=== PATIENT | male | born 1945 | race Caucasian/White ===

== ENCOUNTER 2018-03-20 09:40 | Inpatient (IN) | payer OTHER ==
[2018-03-20] MEDS ORDERED: METOPROLOL TARTRATE 5 MG/5 ML INJ IV ONE (10:17)
[2018-03-20] MEDS ORDERED: NA CHLORIDE 0.9% 1,000 ML ONE (10:17)
[2018-03-20] MEDS ORDERED: ENOXAPARIN 100 MG/ML SYR SQ ONE (10:17)
[2018-03-20 10:25] LABS: Absolute Lymphocytes (CBC) 2.1 K/uL (0.7-4.9); Absolute Monocytes 0.5 K/uL (0.1-1.3); Absolute Neutrophil 4.9 K/uL (1.8-8.0); Basophils % 0.4 % (0-1.3); Eosinophils % 0.6 % (0-4.4); Hematocrit 43.6 % (39.6-49.0); Lymphocytes % 27.6 % (15.3-44.8); MPV 8.1 fL (7.6-11.3); Monocytes % 6.9 % (3.3-12.3); RBC Red Blood Cell Count 4.91 M/uL (4.33-5.43)
[2018-03-20 10:26] LABS: Protime INR 1.07
--- NOTE | 2018-03-20 10:26 | EDPHYS ---
Physician Documentation [facility] Name: Ovidio Doty JR. Age: 73 yrs Sex: Male : 1945 Arrival Date: 03/20/2018 Time: 09:42 Bed 3 Private MD: ED Physician Vu Keith HPI: 03/20 10:04 This 73 yrs old Male presents to ER via Unassigned with complaints of Chest snw Pain. 10:04 Onset: The symptoms/episode began/occurred suddenly, at 02:00. Associated signs and snw symptoms: Pertinent positives: chest pain, "indigestion". The patient has not experienced similar symptoms in the past. sees MD in [place] and has seen Dr. Matthews. Historical: - Allergies: 10:13 No Known Allergies; aj1 - Home Meds: 10:13 aspirin 81 mg Oral TbEC 1 tab once daily [Active]; atorvastatin 20 mg oral tab 1 tab aj1 once daily [Active]; lisinopril 30 mg Oral tab 1 tab once daily [Active]; tamsulosin 0.4 mg oral cp24 1 cap once daily [Active]; arthrozene daily [Active]; - PMHx: 10:13 Hypertension; Hyperlipidemia; aj1 - PSHx: 10:13 eye surgery; aj1 - Immunization history:: Flu vaccine is not up to date. - Social history:: Smoking status: Patient/guardian denies using tobacco. - Ebola Screening: : Patient denies travel to an Ebola-affected area in the 21 days before illness onset. ROS: 10:03 Constitutional: Negative for fever, chills, and weight loss, Eyes: Negative for injury, snw pain, redness, and discharge, ENT: Negative for injury, pain, and discharge, Neck: Negative for injury, pain, and swelling. 10:03 Respiratory: Negative for shortness of breath, cough, wheezing, and pleuritic chest pain, Back: Negative for injury and pain, : Negative for injury, bleeding, discharge, and swelling, MS/Extremity: Negative for injury and deformity, Skin: Negative for injury, rash, and discoloration, Neuro: Negative for headache, weakness, numbness, tingling, and seizure, Psych: Negative for depression, anxiety, suicide ideation, homicidal ideation, and hallucinations. 10:03 Abdomen/GI: Negative for abdominal pain, nausea, vomiting, diarrhea, and constipation. 10:03 Cardiovascular: Positive for chest pain. Exam: 10:02 Constitutional: This is a well developed, well nourished patient who is awake, alert, snw and in no acute distress. Head/Face: Normocephalic, atraumatic. Eyes: Pupils equal round and reactive to light, extra-ocular motions intact. Lids and lashes normal. Conjunctiva and sclera are non-icteric and not injected. Cornea within normal limits. Periorbital areas with no swelling, redness, or edema. ENT: Nares patent. No nasal discharge, no septal abnormalities noted. Tympanic membranes are normal and external auditory canals are clear. Oropharynx with no redness, swelling, or masses, exudates, or evidence of obstruction, uvula midline. Mucous membranes moist. Neck: Trachea midline, no thyromegaly or masses palpated, and no cervical lymphadenopathy. Supple, full range of motion without nuchal rigidity, or vertebral point tenderness. No Meningismus. Chest/axilla: Normal chest wall appearance and motion. Nontender with no deformity. No lesions are appreciated. Respiratory: Lungs have equal breath sounds bilaterally, clear to auscultation and percussion. No rales, rhonchi or wheezes noted. No increased work of breathing, no retractions or nasal flaring. Back: No spinal tenderness. No costovertebral tenderness. Full range of motion. Skin: Warm, very dry with normal turgor. Normal color with no rashes, no lesions, and no evidence of cellulitis. MS/ Extremity: Pulses equal, no cyanosis. Neurovascular intact. Full, normal range of motion. Neuro: Awake and alert, GCS 15, oriented to person, place, time, and situation. Cranial nerves II-XII grossly intact. Motor strength 5/5 in all extremities. Sensory grossly intact. Cerebellar exam normal. Normal gait. Psych: Awake, alert, with orientation to person, place and time. Behavior, mood, and affect are within normal limits. 10:02 Cardiovascular: Rate: tachycardic, Rhythm: irregularly irregular, Pulses: no pulse deficits are appreciated, Heart sounds: normal, Edema: is not appreciated, JVD: is not appreciated. 10:02 Abdomen/GI: Inspection: abdomen appears normal, umbilical hernia, Bowel sounds: normal, in all quadrants. Vital Signs: 10:05 BP 108 / 79; Pulse 142; Resp 20; Temp 97.2; Pulse Ox 100% on R/A; Weight 108.86 kg; bp Height 6 ft. 4 in. (193.04 cm); 11:00 BP 127 / 88; Pulse 115; Resp 15; Pulse Ox 98% ; bp 12:09 BP 121 / 86; Pulse 109; Resp 14; Pulse Ox 99% ; bp 10:05 Body Mass Index 29.21 (108.86 kg, 193.04 cm) bp MDM: 09:52 Patient medically screened. snw 10:06 Data reviewed: vital signs, nurses notes. Data interpreted: Pulse oximetry: on room air snw is 100 %. Interpretation: normal. Counseling: I had a detailed discussion with the patient and/or guardian regarding: the historical points, exam findings, and any diagnostic results supporting the discharge/admit diagnosis, lab results, radiology results, the need for further work-up and treatment in the hospital, Pt took ASA 324mg at 0300. 10:21 Physician consultation: Mihir Vora MD was called at 10:22, was contacted at 10:22, snw in the emergency department to see patient at 10:22. Physician consultation: Rehan Pereira DO was called at 10:22, was contacted at 10:22, regarding admission, to the telemetry unit. 03/20 10:02 Order name: Basic Metabolic Panel; Complete Time: 10:45 snw 03/20 10:02 Order name: CBC with Diff; Complete Time: 10:29 snw 03/20 10:02 Order name: LFT's; Complete Time: 10:45 snw 03/20 10:02 Order name: Magnesium; Complete Time: 10:45 snw 03/20 10:02 Order name: NT PRO-BNP; Complete Time: 10:45 snw 03/20 10:02 Order name: PT-INR; Complete Time: 10:33 snw 03/20 10:02 Order name: Troponin (emerg Dept Use Only); Complete Time: 10:45 snw 03/20 10:02 Order name: XRAY Chest (1 view); Complete Time: 10:29 snw 03/20 10:02 Order name: EKG; Complete Time: 10:03 snw 03/20 10:02 Order name: Cardiac monitoring; Complete Time: 10:11 snw 03/20 10:02 Order name: EKG - Nurse/Tech; Complete Time: 10: snw 03/20 10:24 Order name: Echo w/ Doppler snw 03/20 10:02 Order name: IV Saline Lock; Complete Time: 10:11 snw 03/20 10:02 Order name: Labs collected and sent; Complete Time: 10: snw 03/20 10:02 Order name: O2 Per Protocol; Complete Time: 10: snw 03/20 10:02 Order name: O2 Sat Monitoring; Complete Time: 10:12 snw Administered Medications: 10:16 Drug: Metoprolol 5 mg Route: IVP; Site: right forearm; bp 10:16 Drug: Lovenox 1 mg/kg Route: Sub-Q; Site: right lower abdomen; bp 12:16 Follow up: Response: No adverse reaction bp 10:20 Drug: Metoprolol 5 mg Route: IVP; Site: right forearm; bp 10:25 Drug: Metoprolol 5 mg Route: IVP; Site: right forearm; bp 12:17 Follow up: Response: No adverse reaction bp Disposition: 03/20/18 10:25 Hospitalization ordered by Rehan Pereira for Inpatient Admission. Preliminary diagnosis are Chest pain, unspecified, Atrial fibrillation and flutter - with RVR. - Bed requested for Telemetry/MedSurg (observation). - Status is Inpatient Admission. bp - Condition is Stable. - Problem is new. - Symptoms are unchanged. UTI on Admission? No Addendum: 03/22/2018 15:26 Co-signature as Attending Physician, Vu Keith MD. m a2 Signatures: Dispatcher [employer] EDMS Tamara Kerr RN RN aj1 Lizette Miller, STUDIO POTTER-C STUDIO POTTER-Csnw Kylie Almonte RN Slim Saeed RN RN bp Alzahri, Mohammad, MD MD ma2 Corrections: (The following items were deleted from the chart) 03/20 10:37 10:25 Hospitalization Ordered by Rehan Pereira DO for Inpatient Admission. Preliminary snw diagnosis is Chest pain, unspecified; Atrial fibrillation and flutter - with RVR. Bed requested for Telemetry/MedSurg (Inpatient). Status is Inpatient Admission. Condition is Stable. Problem is new. Symptoms are unchanged. UTI on Admission? No. snw 11:58 10:37 03/20/2018 10:25 Hospitalization Ordered by Rehan Pereira DO for Inpatient df Admission. Preliminary diagnosis is Chest pain, unspecified; Atrial fibrillation and flutter - with RVR. Bed requested for Telemetry/MedSurg (observation). Status is Inpatient Admission. Condition is Stable. Problem is new. Symptoms are unchanged. UTI on Admission? No. snw 12:25 11:58 03/20/2018 10:25 Hospitalization Ordered by Rehan Pereira DO for Inpatient bp Admission. Preliminary diagnosis is Chest pain, unspecified; Atrial fibrillation and flutter - with RVR. Bed requested for Telemetry/MedSurg (observation). Status is Inpatient Admission. Condition is Stable. Problem is new. Symptoms are unchanged. UTI on Admission? No. df
--- NOTE | 2018-03-20 10:26 | ER ---
Nurse's Notes [facility] Name: Ovidio oDty JR. Age: 73 yrs Sex: Male : 1945 Arrival Date: 03/20/2018 Time: 09:42 Bed 3 Private MD: Diagnosis: Chest pain, unspecified;Atrial fibrillation and flutter-with RVR Presentation: 03/20 10:03 Presenting complaint: Patient states: Chest pain that began early this morning, took ph ASA at home, attempted to take BP at home and unable to get a reading so came to ED, continues to c/o chest pain, rhythm noted to be Afib RVR when pt placed on bedside monitor. Transition of care: patient was not received from another setting of care. Onset of symptoms was March 20, 2018. Risk Assessment: Do you want to hurt yourself or someone else? Patient reports no desire to harm self or others. Care prior to arrival: None. 10:03 Method Of Arrival: Ambulatory ph 10:03 Acuity: TIO 2 ph 10:11 Initial Sepsis Screen: Does the patient meet any 2 criteria? HR > 90 bpm. No. Patient's aj1 initial sepsis screen is negative. Does the patient have a suspected source of infection? No. Patient's initial sepsis screen is negative. Triage Assessment: 10:13 General: Appears in no apparent distress. uncomfortable, Behavior is calm, cooperative, aj1 appropriate for age. Pain: Complains of pain in mid-sternal area Pain radiates to thoracic area Pain currently is 2 out of 10 on a pain scale. Quality of pain is described as pressure, Pain began 8 hours ago. Neuro: Level of Consciousness is awake, alert, obeys commands. Cardiovascular: Reports chest pain, Patient's skin is warm and dry. Rhythm is atrial fibrillation with rapid ventricular response. Respiratory: Airway is patent Respiratory effort is even, unlabored, Respiratory pattern is regular, symmetrical. Historical: - Allergies: 10:13 No Known Allergies; aj1 - Home Meds: 10:13 aspirin 81 mg Oral TbEC 1 tab once daily [Active]; atorvastatin 20 mg oral tab 1 tab aj1 once daily [Active]; lisinopril 30 mg Oral tab 1 tab once daily [Active]; tamsulosin 0.4 mg oral cp24 1 cap once daily [Active]; arthrozene daily [Active]; - PMHx: 10:13 Hypertension; Hyperlipidemia; aj1 - PSHx: 10:13 eye surgery; aj1 - Immunization history:: Flu vaccine is not up to date. - Social history:: Smoking status: Patient/guardian denies using tobacco. - Ebola Screening: : Patient denies travel to an Ebola-affected area in the 21 days before illness onset. Screenin:45 Abuse screen: Denies threats or abuse. Denies injuries from another. Nutritional bp screening: No deficits noted. Tuberculosis screening: No symptoms or risk factors identified. Fall Risk None identified. Assessment: :45 General: Appears in no apparent distress. comfortable, Behavior is calm, cooperative, bp appropriate for age. Pain: Complains of pain in thoracic area and chest and mid-sternal area. Pain: Pain does not radiate. Neuro: Level of Consciousness is awake, alert, obeys commands, Oriented to person, place, time, situation, Appropriate for age. Cardiovascular: Rhythm is atrial fibrillation with rapid ventricular response. Respiratory: Airway is patent Respiratory effort is even, unlabored, Respiratory pattern is regular, symmetrical. GI: No signs and/or symptoms were reported involving the gastrointestinal system. : No signs and/or symptoms were reported regarding the genitourinary system. EENT: No deficits noted. Derm: No deficits noted. Musculoskeletal: Circulation, motion, and sensation intact. Range of motion: intact in all extremities. 11:00 Reassessment: ECHO AT B/S. bp Vital Signs: 10:05 BP 108 / 79; Pulse 142; Resp 20; Temp 97.2; Pulse Ox 100% on R/A; Weight 108.86 kg; bp Height 6 ft. 4 in. (193.04 cm); 11:00 BP 127 / 88; Pulse 115; Resp 15; Pulse Ox 98% ; bp 12:09 BP 121 / 86; Pulse 109; Resp 14; Pulse Ox 99% ; bp 10:05 Body Mass Index 29.21 (108.86 kg, 193.04 cm) bp ED Course: 09:42 Patient arrived in ED. rg4 09:45 Patient has correct armband on for positive identification. Bed in low position. Call bp light in reach. Side rails up X2. Adult w/ patient. color television console monitor on. Pulse ox on. NIBP on. 09:52 Lizette Miller FNP-C is [facility]. snw 09:52 Vu Keith MD is Attending Physician. snw 10:00 Slim Franz, DARRYL is Primary Nurse. bp 10:04 EKG done, by customer service technician. reviewed by Lizette BROOKS. sm3 10:05 Triage completed. ph 10:05 Arm band placed on. ph 10:10 Inserted saline lock: 18 gauge in right forearm, using aseptic technique. Patient bp maintains SpO2 saturation greater than 95% on room air. 10:17 X-ray completed. Portable x-ray completed in exam room. Patient tolerated procedure tm4 well. 10:18 XRAY Chest (1 view) In Process Unspecified. EDMS 10:24 Vu Keith MD is Hospitalizing Provider. snw 10:24 Rehan Pereira DO is Hospitalizing Provider. snw 12:09 No provider procedures requiring assistance completed. Patient admitted, IV remains in bp place. Administered Medications: 10:16 Drug: Metoprolol 5 mg Route: IVP; Site: right forearm; bp 10:16 Drug: Lovenox 1 mg/kg Route: Sub-Q; Site: right lower abdomen; bp 12:16 Follow up: Response: No adverse reaction bp 10:20 Drug: Metoprolol 5 mg Route: IVP; Site: right forearm; bp 10:25 Drug: Metoprolol 5 mg Route: IVP; Site: right forearm; bp 12:17 Follow up: Response: No adverse reaction bp Output: 11:00 Urine: 125ml (Voided); Total: 125ml. lt1 12:08 Urine: 650ml (Voided); Total: 775ml. lt1 Outcome: 10:25 Decision to Hospitalize by Provider. snw 12:10 Condition: stable bp 12:10 Instructed on the need for admit. 12:16 Admitted to Tele accompanied by tech, family with patient, via wheelchair, room 204, bp with chart, Report called to THANG ANDREWS 12:25 Patient left the ED. bp Signatures: Dispatcher [employer] EDMS Tamara Kerr RN RN aj1 Lizette Miller FNP-C OUTSIDE SALES REPRESENTATIVE-Csnw Marla Burk tm4 Patricia Awad RN RN ph Garcia, Rubi rg4 Slim Franz RN RN bp Luisa Hernandez sm3 Kala Castro lt1 Corrections: (The following items were deleted from the chart) 10:16 10:05 BP 108 / 79; Pulse 142bpm; Resp 20bpm; Pulse Ox 100% RA; Temp 97.2F; ph bp
--- NOTE | 2018-03-20 10:28 | RAD REPORT ---
EXAM DESCRIPTION: RAD - Chest Single View - 03/20/2018 10:21 am CLINICAL HISTORY: CHEST PAIN Chest pain. COMPARISON: No comparisons FINDINGS: Portable technique limits examination quality. The lungs are grossly clear. The heart is normal in size. No displaced fractures. IMPRESSION: No acute intrathoracic process suspected.
[2018-03-20 10:43] LABS: ALT/SGPT 43 U/L (12-78); AST/SGOT 28 U/L (15-37); Albumin 3.7 g/dL (3.4-5.0); Alkaline Phosphatase 84 U/L (45-117); BUN Blood Urea Nitrogen 24 mg/dL (7-18); Bicarbonate 26 mmol/L (21-32); Bilirubin Direct 0.1 mg/dL (0-0.2); Bilirubin Total 0.5 mg/dL (0.2-1.0); Glucose Level 126 mg/dL (74-106); Magnesium 2.3 mg/dL (1.8-2.4); NT PRO-BNP 925 pg/mL (<125); Potassium 4.2 mmol/L (3.5-5.1); Protein, Total 7.2 g/dL (6.4-8.2); Sodium Level 140 mmol/L (136-145); Troponin (Emerg Dept Use Only) < 0.02 ng/mL (0.0-0.045)
--- NOTE | 2018-03-20 11:20 | P.HP ---
Certification for Inpatient Patient admitted to: Observation With expected LOS: <2 Midnights Patient will require the following post-hospital care: None Practitioner: I am a practitioner with admitting privileges, knowledge of patient current condition, hospital course, and medical plan of care. Services: Services provided to patient in accordance with Admission requirements found in Title 42 Section 412.3 of the Code of Federal Regulations Patient History Date of Service: 03/20/18 Primary Care Provider: Dr. Singh([place], [place]); Cardiology-Dr. Ramirez Reason for admission: Palpitations, chest pain History of Present Illness: 73-year-old male presented to the emergency room with palpitations and chest pain. Patient reported chest pain and palpitations today. Chest pain to the sternal region. Patient has history of hypertension and hyperlipidemia. Patient takes medication for this. It is been quite sometime since he last saw Cardiology. Palpitations did not improve. He denied any significant fever, chills, shortness of breath. No significant edema to the lower extremities. He came to the ER for further evaluation. In the ER patient evaluated. Patient found to have new onset atrial fibrillation with RVR. Rate was increased and required IV metoprolol. Rate now improved. On lab white count 7.6, hemoglobin 15.3. Sodium 140, potassium 4.2, BUN of 24, creatinine 1.2 with a GFR 58. Glucose 126, BNP 925. Troponin less than 0.02. Chest x-ray unremarkable. Patient admitted for observation. When I saw the patient ER, he appeared stable. No chest pain identified. Patient with history of hypertension, hyperlipidemia and BPH. Patient does not smoke or drink alcohol. Allergies No Known Allergies Allergy (Verified 01/25/17 12:31) Home medications list reviewed: Yes Home Medications: Aspirin [Aspirin EC 81 MG] 81 mg PO DAILY 01/25/17 Atorvastatin Calcium [Lipitor*] 20 mg PO BEDTIME 01/25/17 Lisinopril [Zestril] 30 mg PO DAILY 01/25/17 - Past Medical/Surgical History Diabetic: No -: Hypertension -: Hyperlipidemia -: BPH -: Cataracts Psychosocial/ Personal History: Patient is . He has no children. 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 - Family History Father -: Cancer (Throat cancer) Mother -: Stroke - Social History Smoking Status: Never smoker Alcohol use: No CD- Drugs: No Caffeine use: No Place of Residence: Home Review of Systems General: As per HPI Eyes: Unremarkable ENT: Unremarkable Respiratory: Unremarkable Cardiovascular: Chest Pain, Palpitations, As per HPI Gastrointestinal: Unremarkable Genitourinary: Unremarkable Musculoskeletal: Unremarkable Integumentary: Unremarkable Neurological: Unremarkable Lymphatics: Unremarkable Physical Examination - Physical Exam General: Alert, In no apparent distress, Oriented x3, Cooperative HEENT: Atraumatic, Normocephalic, PERRLA, Mucous membr. moist/pink Neck: Supple, No Thyromegaly Respiratory: Clear to auscultation bilaterally, Normal air movement Cardiovascular: Irregular heart rate/rhythm (Atrial fibrillation, rate improved) Gastrointestinal: Normal bowel sounds, Soft and benign, Non-distended, No tenderness, No masses, No rebound, No guarding Musculoskeletal: No erythema, No tenderness, No warmth Integumentary: No tenderness/swelling, No erythema, No warmth, No cyanosis Neurological: Normal speech, Normal strength at 5/5 x4 extr, Normal tone, Normal affect Lymphatics: No axilla or inguinal lymphadenopathy - Studies Laboratory Data (last 24 hrs) 03/20/18 10:09: PT 12.6 H, INR 1.07 03/20/18 10:09: WBC 7.6, Hgb 15.3, Hct 43.6, Plt Count 118 L 03/20/18 10:09: Sodium 140, Potassium 4.2, BUN 24 H, Creatinine 1.23, Glucose 126 H, Magnesium 2.3, Total Bilirubin 0.5, AST 28, ALT 43, Alkaline Phosphatase 84 Assessment and Plan - Plan Impression: Palpitations and chest pain secondary to New onset atrial fibrillation with RVR Hypertension Hyperlipidemia BPH Plan: Palpitations and chest pain secondary to New onset atrial fibrillation with RVR : Patient will be admitted and observed. Cardiology consulted. Case discussed with cardiology. Will continue with beta-angel therapy for rate control. Will monitor closely. Continue to monitor cardiac enzymes and electrolytes. Will check echocardiogram. Will evaluate for thyroid disease. Will continue to monitor closely. Will reassess. Lovenox at 1 milligram/ kilogram subcu twice daily initiated. Will reassess tomorrow. Patient will likely require medication including chronic anti coagulation therapy at discharge. Hypertension: Will hold lisinopril. Patient started on metoprolol. Will monitor and adjust appropriately. Hyperlipidemia: Check fasting lipid panel. Will continue with Lipitor 20 mg daily. BPH: Will continue with Flomax 0.4 mg daily. Discharge Plan: Home Plan to discharge in: 24 Hours - Advance Directives Does patient have a Living Will: No Does patient have a Durable POA for Healthcare: No - Code Status/Comfort Care Code Status Assessed: Yes (Patient full code.) Time Spent Managing Pts Care (In Minutes): 55
[2018-03-20] MEDS ORDERED: ACETAMINOPHEN 500 MG TAB PO PRN (12:23)
[2018-03-20] MEDS ORDERED: ONDANSETRON 4 MG/2 ML VIAL IV PRN (12:23)
[2018-03-20 13:14] LABS: CKMB Creatine Kinase MB 7.1 ng/mL (0.3-3.6); Troponin I 0.02 ng/mL (0.0-0.045)
[2018-03-20 13:21] LABS: Thyroid Stimulating Hormone 2.34 uIU/mL (0.360-3.740)
--- NOTE | 2018-03-20 15:35 | EKG ---
Test Date: 2018-03-20 Test Time: 09:51:03 Antichecking Iron Worker: DUSTY MEASUREMENT RESULTS: Intervals: Rate: 147 IN: QRSD: 80 QT: 288 QTc: 450 [place]: P: IN: QRS: 54 T: 8 INTERPRETIVE STATEMENTS: Atrial fibrillation with rapid ventricular response Abnormal ECG No previous ECG available for comparison Electronically Signed On 03-20-18 15:34:[address]PERVIS[address] by Mihir Vora
--- NOTE | 2018-03-20 15:41 | ECHO ---
HEIGHT: 6 ft 4 in WEIGHT: 240 lb 0 oz DATE OF STUDY: 03/20/[address]: Lizette Miller DRIVER OPERATOR-BC 2-DIMENSIONAL: YES M.MODE: YES DOPPLER: YES COLOR FLOW: YES TDS: NO PORTABLE: NO DEFINITY: NO BUBBLE STUDY: NO DIAGNOSIS: ATRIAL FIBRILLATION WITH RAPID VENTRICULAR RESPONSE. CARDIAC HISTORY: CATHERIZATION: NO SURGERY: NO PROSTHETIC VALVE: NO PACEMAKER: NO MEASUREMENTS (cm) DIASTOLIC (NORMALS) SYSTOLIC (NORMALS) IVSd 1.1 (0.6-1.2) LA Diam 4.0 (1.9-4.0) LVEF 50% LVIDd 3.8 (3.5-5.7) LVIDs 2.9 (2.0-3.5) %FS 25% LVPWd 1.1 (0.6-1.2) Ao Diam 2.7 (2.0-3.7) 2 DIMENSIONAL ASSESSMENT: RIGHT ATRIUM: NORMAL LEFT ATRIUM: NORMAL RIGHT VENTRICLE: NORMAL LEFT VENTRICLE: NORMAL TRICUSPID VALVE: NORMAL MITRAL VALVE: NORMAL PULMONIC VALVE: NORMAL AORTIC VALVE: NORMAL PERICARDIAL EFFUSION: NONE AORTIC ROOT: NORMAL LEFT VENTRICULAR WALL MOTION: NORMAL DOPPLER/COLOR FLOW: NORMAL COMMENTS: NORMAL LEFT VENTRICULAR SIZE AND FUNCTION. NO WALL MOTION ABNORMALITIES. NO EFFUSION. NO ATRIAL FIBRILLATION. TECHNOLOGIST: TAMMY TRAORE RDCS
[2018-03-20] MEDS: METOPROLOL TAR 25 MG TAB PO SCH (17:18)
[2018-03-20 17:49] LABS: Urine Appearance CLEAR; Urine Bilirubin NEGATIVE (NEG); Urine Blood NEGATIVE (NEG); Urine Color YELLOW; Urine Glucose NEGATIVE (NEG); Urine Protein NEGATIVE (NEG); Urine Urobilinogen 0.2 mg/dL (0.2-1.0)
[2018-03-20 18:05] LABS: Urine Microscopic Reflex NO UMIC
--- NOTE | 2018-03-20 19:55 | CON ---
Date of Consultation: 03/20/2018 Reason For Consultation: New-onset atrial fibrillation with chest pain. History Of Present Illness: Mr. Doty is a 73-year-old white man, who has a history of dyslipidemi a, hypertension, benign prostatic hypertrophy, came in with palpitation and chest pain with that. Hi s chest pain was resolved after his atrial fibrillation rate was controlled. This is new to him. He denied any PND, orthopnea, pedal edema. Denied any syncope. Denied any nausea, vomiting, or diapho resis. The patient thinks that his atrial fibrillation was started approximately 12 hours prior to h is arrival. Allergies: NONE. Review of Systems: Negative. Social History: Negative for tobacco, alcohol, or drugs. Family History: Noncontributory. Medications At Home: Include aspirin, Lipitor, Zestril, and Flomax. Physical Examination: General: He was slightly anxious. No acute distress. Alert and oriented x3. Vital Signs: Blood pressure was adequate at 120/70. His heart rate was 110. HEENT: Negative. Neck: Supple with no bruit. Chest: Clear. Cardiac: Revealed atrial fibrillation. No murmurs, gallops, or rubs. Abdomen: Benign. Extremities: Revealed no clubbing, cyanosis, or edema. Diagnostic Data: EKG showed atrial fibrillation. BNP was 925. Impression And Plan: New-onset atrial fibrillation with chest pain. Chest pain resolved after the a trial fibrillation rate was better. He certainly needs to have a cardiac workup including an echocar diogram, we can probably do an outpatient Lexiscan once his heart rate is controlled. He has already received metoprolol and Lovenox. I think we should leave him on metoprolol and Lovenox for now and see how he does with that as far as a rate or conversion. If not, we should put him on Betapace 80 m g b.i.d. having get 3 dosages and then consider cardioversion in the near future. Regarding anticoag ulation, I think he has enough risk factors. He should be anticoagulated with Coumadin or one of the new novel anticoagulants. We can certainly do that when he goes home and we will decide what to do with atrial fibrillation depending on beta-blockers use. His blood pressure is well controlled. His dyslipidemia is well controlled. FREDRICK/MIGUE Voice ID: [id number] Report ID: [id number]
[2018-03-20] MEDS: Enoxaparin 120 MG/0.8 ML SYR SQ SCH (20:50)
[2018-03-20] MEDS: ATORVASTATIN 20 MG TAB PO SCH (20:51)
[2018-03-20] MEDS: TAMSULOSIN 0.4 MG SR CAP PO SCH (20:51)
[2018-03-20 22:34] LABS: CKMB Creatine Kinase MB 4.9 ng/mL (0.3-3.6); Creatine Phosphokinase 169 U/L (39-308); Troponin I < 0.02 ng/mL (0.0-0.045)
[2018-03-20] MEDS: TRAZODONE 50 MG TABLET PO PRN (23:56)
[2018-03-21 06:15] LABS: Absolute Lymphocytes (CBC) 2.2 K/uL (0.7-4.9); Absolute Monocytes 0.8 K/uL (0.1-1.3); Absolute Neutrophil 4.7 K/uL (1.8-8.0); Basophils % 0.4 % (0-1.3); Eosinophils % 1.7 % (0-4.4); Hematocrit 41.2 % (39.6-49.0); Lymphocytes % 28.2 % (15.3-44.8); MPV 7.9 fL (7.6-11.3); Monocytes % 9.8 % (3.3-12.3); RBC Red Blood Cell Count 4.61 M/uL (4.33-5.43)
[2018-03-21] MEDS: METOPROLOL TAR 25 MG TAB PO SCH (06:26)
[2018-03-21] MEDS: PANTOPRAZOLE 40MG TABLET PO SCH (06:26)
[2018-03-21 06:38] LABS: Magnesium 2.4 mg/dL (1.8-2.4); Potassium 4.3 mmol/L (3.5-5.1)
[2018-03-21] MEDS: Enoxaparin 120 MG/0.8 ML SYR SQ SCH (08:42)
[2018-03-21] MEDS: ASPIRIN EC 81 MG TAB PO SCH (08:43)
[2018-03-21] MEDS ORDERED: SOTALOL HCL 80 MG TAB PO ONE (10:52)
--- NOTE | 2018-03-21 13:48 | P.PN ---
Subjective Date of Service: 03/21/18 Primary Care Provider: Dr. Singh([place], [place]); Cardiology-Dr. Ramirez Chief Complaint: Palpitations, chest pain Subjective: Other (Patient doing well this time. Patient still in atrial fibrillation but rate better controlled.) Physical Examination - Vital Signs Temperature: 97.5 F Blood Pressure: 113/79 Pulse: 92 Respirations: 18 Pulse Ox (%): 94 - Physical Exam General: Alert, In no apparent distress, Oriented x3, Cooperative HEENT: Atraumatic Neck: Supple Respiratory: Clear to auscultation bilaterally, Normal air movement Cardiovascular: Irregular heart rate/rhythm (Atrial fibrillation rate better controlled) Gastrointestinal: Normal bowel sounds, No tenderness, No masses, No rebound, No guarding Musculoskeletal: No erythema, No tenderness, No warmth Integumentary: No tenderness/swelling, No erythema, No warmth, No cyanosis Neurological: Normal speech, Normal strength at 5/5 x4 extr, Normal tone - Studies Laboratory Data (last 24 hrs) 03/21/18 05:38: Sodium 144, Potassium 4.3, BUN 20 H, Creatinine 1.36 H, Glucose 99, Magnesium 2.4, Triglycerides 93, Cholesterol 123, HDL Cholesterol 37 L, Cholesterol/HDL Ratio 3.32 03/21/18 05:38: WBC 7.8, Hgb 14.5, Hct 41.2, Plt Count 109 L 03/20/18 21:39: Troponin I < 0.02 Medications List Reviewed: Yes Assessment & Plan Discharge Plan: Home Plan to discharge in: 24 Hours Physician Review Additional Text: Impression: Palpitations and chest pain secondary to New onset atrial fibrillation with RVR Hypertension Hyperlipidemia Mild renal insufficiency BPH Plan: Palpitations and chest pain secondary to New onset atrial fibrillation with RVR : Patient still in atrial fibrillation but rate better controlled. Case discussed with cardiology. Since the patient has not converted on beta-angel therapy will exchange floor manager to Betapace 40 mg 1 pill twice daily. Will monitor patient for at least 3 doses. If the patient remains in atrial fibrillation and rate controlled the patient can possibly be discharged tomorrow on Betapace with chronic anti coagulation therapy. Patient will require cardiac stress test as an outpatient. Hypertension: Lisinopril discontinued. Patient now on sotalol. Hyperlipidemia: Fasting lipid panel well controlled. Will continue with Lipitor 20 mg daily. Mild renal insufficiency: Will start low-dose IV fluids. Will monitor closely. BPH: Will continue with Flomax 0.4 mg daily. Time Spent Managing Pts Care (In Minutes): 55
[2018-03-21] MEDS ORDERED: NACHLORIDE 0.45% 1,000 ML IV SCH (14:00)
[2018-03-21] MEDS: SOTALOL HCL 80 MG TAB PO SCH (16:29)
[2018-03-21] MEDS ORDERED: SOTALOL HCL 80 MG TAB PO SCH ×2 (18:00)
[2018-03-21] MEDS: TRAZODONE 50 MG TABLET PO PRN (22:10)
[2018-03-21] MEDS: ATORVASTATIN 20 MG TAB PO SCH (22:10)
[2018-03-21] MEDS: TAMSULOSIN 0.4 MG SR CAP PO SCH (22:10)
[2018-03-21] MEDS: APIXABAN 5 MG TABLET PO SCH (22:10)
[2018-03-22] MEDS: PANTOPRAZOLE 40MG TABLET PO SCH (06:18)
[2018-03-22] MEDS: SOTALOL HCL 80 MG TAB PO SCH (06:18)
[2018-03-22 06:22] LABS: Absolute Lymphocytes (CBC) 2.2 K/uL (0.7-4.9); Absolute Monocytes 0.6 K/uL (0.1-1.3); Absolute Neutrophil 3.4 K/uL (1.8-8.0); Basophils % 0.4 % (0-1.3); Eosinophils % 2.2 % (0-4.4); Hematocrit 41.8 % (39.6-49.0); Lymphocytes % 34.7 % (15.3-44.8); Monocytes % 9.1 % (3.3-12.3); RBC Red Blood Cell Count 4.68 M/uL (4.33-5.43)
[2018-03-22 06:36] LABS: Magnesium 2.2 mg/dL (1.8-2.4); Potassium 4.2 mmol/L (3.5-5.1)
[2018-03-22] MEDS: ASPIRIN EC 81 MG TAB PO SCH (09:29)
[2018-03-22] MEDS: APIXABAN 5 MG TABLET PO SCH (09:29)
--- NOTE | 2018-03-22 10:03 | P.DS ---
Admission Date: 03/21/18 Discharge Date: 03/22/18 Primary Care Provider: Dr. Singh([place], [place]); Cardiology-Dr. Ramirez Disposition: ROUTINE DISCHARGE Discharge Condition: GOOD Reason for Admission: Palpitations, chest pain Consultations: Cardiology-Dr. Pak/Dr. Vora Procedures: ECHO: EF 50-% LEFT VENTRICULAR WALL MOTION: NORMAL DOPPLER/COLOR FLOW: NORMAL COMMENTS: NORMAL LEFT VENTRICULAR SIZE AND FUNCTION. NO WALL MOTION ABNORMALITIES. NO EFFUSION. NO ATRIAL FIBRILLATION. CXR: COMPARISON: No comparisons FINDINGS: Portable technique limits examination quality. The lungs are grossly clear. The heart is normal in size. No displaced fractures. IMPRESSION: No acute intrathoracic process suspected. Medical problem list: Palpitations and chest pain secondary to New onset atrial fibrillation with RVR Hypertension Hyperlipidemia Mild renal insufficiency likely underlying chronic renal disease stage 3 BPH Mild thrombocytopenia GERD Brief History of Present Illness: 73-year-old male presented to the emergency room with palpitations and chest pain. Patient reported chest pain and palpitations today. Chest pain to the sternal region. Patient has history of hypertension and hyperlipidemia. Patient takes medication for this. It is been quite sometime since he last saw Cardiology. Palpitations did not improve. He denied any significant fever, chills, shortness of breath. No significant edema to the lower extremities. He came to the ER for further evaluation. In the ER patient evaluated. Patient found to have new onset atrial fibrillation with RVR. Rate was increased and required IV metoprolol. Rate now improved. On lab white count 7.6, hemoglobin 15.3. Sodium 140, potassium 4.2, BUN of 24, creatinine 1.2 with a GFR 58. Glucose 126, BNP 925. Troponin less than 0.02. Chest x-ray unremarkable. Patient admitted for observation. When I saw the patient ER, he appeared stable. No chest pain identified. Patient with history of hypertension, hyperlipidemia and BPH. Patient does not smoke or drink alcohol. Hospital Course: Patient presented with palpitations and chest pain secondary to new onset atrial fibrillation with RVR. Patient was admitted for further evaluation and treatment. Patient seen by Cardiology. Patient was started on beta-angel therapy but this was eventually changed to Betapace 80 mg 1 pill twice daily. Patient still in atrial fibrillation but rate better controlled. Chest pain resolved. Patient also now on chronic anti coagulation therapy-Eliquis. Patient has tolerated medication well. At discharge patient will continue with Betapace 80 mg 1 pill twice daily and Eliquis 5 mg 1 pill twice daily. Recommendation is for the patient to follow up with cardiology within 1 week to follow up this hospitalization. Patient will require cardiac stress tests as an outpatient to further assess his condition. If atrial fibrillation persists patient may require cardioversion as an outpatient. Education on atrial fibrillation, chronic anti coagulation therapy-Eliquis and Betapace will be provided. Please note aspirin has been discontinued. Patient with history of hypertension. Medication adjusted. Patient no longer taking lisinopril since the patient has done well with Betapace. Recommendation is to maintain blood pressures less 150/80. Further adjustment can be done by his PCP. Patient with hyperlipidemia. Patient will continue with Lipitor 20 mg daily. Patient with mild renal insufficiency. Patient likely with underlying chronic kidney disease stage 3. Patient has seen Nephrology in the past. Lisinopril discontinued. Future medications will need to be renally dosed. Recommendation on no further use of nonsteroidal anti-inflammatories. Recommendation to recheck lab-BMP in 1 week to monitor his progress. Recommendation is for the patient follow up with nephrology in outpatient to further monitor and address. Patient had mild thrombocytopenia. Patient will be on chronic anti coagulation therapy for his atrial fibrillation. Recommendation to recheck lab-CBC in 1 week to monitor his progress. Patient has BPH. Patient seen by urology as an outpatient. Patient will continue with Flomax 0.4 mg daily. Patient will need to inform urology that the patient is on new medication for atrial fibrillation. Patient likely with underlying GERD. Patient will continue with Protonix 40 mg 1 pill once daily. Vital Signs/Physical Exam: Temp Pulse Resp BP Pulse Ox 97.7 F 88 18 120/80 96 03/22/18 04:00 03/22/18 06:20 03/22/18 04:00 03/22/18 06:20 03/22/18 04:00 General: Alert, In no apparent distress, Oriented x3, Cooperative HEENT: Atraumatic, Mucous membr. moist/pink Neck: Supple, No Thyromegaly Respiratory: Clear to auscultation bilaterally, Normal air movement Cardiovascular: Irregular heart rate/rhythm (Atrial fibrillation, rate controlled) Gastrointestinal: Normal bowel sounds, Soft and benign, Non-distended, No tenderness, No masses, No rebound, No guarding Musculoskeletal: No erythema, No tenderness, No warmth Integumentary: No tenderness/swelling, No erythema, No warmth, No cyanosis Neurological: Normal speech, Normal strength at 5/5 x4 extr, Normal tone, Normal affect Laboratory Data at Discharge: WBC 6.4 K/uL (4.3-10.9) D 03/22/18 05:38 Hgb 14.6 g/dL (13.6-17.9) 03/22/18 05:38 Hct 41.8 % (39.6-49.0) 03/22/18 05:38 Plt Count 102 K/uL (152-406) L 03/22/18 05:38 PT 12.6 SECONDS (9.5-12.5) H 03/20/18 10:09 INR 1.07 03/20/18 10:09 Sodium 144 mmol/L (136-145) 03/22/18 05:38 Potassium 4.2 mmol/L (3.5-5.1) 03/22/18 05:38 BUN 23 mg/dL (7-18) H 03/22/18 05:38 Creatinine 1.44 mg/dL (0.55-1.3) H 03/22/18 05:38 Glucose 91 mg/dL (74-106) 03/22/18 05:38 Magnesium 2.2 mg/dL (1.8-2.4) 03/22/18 05:38 Total Bilirubin 0.5 mg/dL (0.2-1.0) 03/20/18 10:09 AST 28 U/L (15-37) 03/20/18 10:09 ALT 43 U/L (12-78) 03/20/18 10:09 Alkaline Phosphatase 84 U/L (45-117) 03/20/18 10:09 Troponin I < 0.02 ng/mL (0.0-0.045) 03/20/18 21:39 Triglycerides 93 mg/dL (<150) 03/21/18 05:38 Cholesterol 123 mg/dL (<200) 03/21/18 05:38 HDL Cholesterol 37 mg/dL (40-60) L 03/21/18 05:38 Cholesterol/HDL Ratio 3.32 03/21/18 05:38 Home Medications: Atorvastatin Calcium [Lipitor*] 20 mg PO BEDTIME 01/25/17 Tamsulosin [Flomax*] 1 cap PO DAILY 03/20/18 Apixaban [Eliquis] 5 mg PO BID #60 tablet 03/22/18 Pantoprazole [Protonix Tab*] 40 mg PO DAILYAC #30 tab 03/22/18 Sotalol HCl [Betapace*] 80 mg PO BID 6AM 6PM #60 tab 03/22/18 New Medications: Apixaban [Eliquis] 5 mg PO BID #60 tablet Pantoprazole [Protonix Tab*] 40 mg PO DAILYAC #30 tab Sotalol HCl [Betapace*] 80 mg PO BID 6AM 6PM #60 tab Patient Discharge Instructions: 1. Patient will need to follow up his PCP in 1 week to follow up this hospitalization. 2. Patient presented with palpitations and chest pain secondary to new onset atrial fibrillation with RVR. Patient was admitted for further evaluation and treatment. Patient seen by Cardiology. Patient was started on beta-angel therapy but this was eventually changed to Betapace 80 mg 1 pill twice daily. Patient still in atrial fibrillation but rate better controlled. Chest pain resolved. Patient also now on chronic anti coagulation therapy-Eliquis. Patient has tolerated medication well. At discharge patient will continue with Betapace 80 mg 1 pill twice daily and Eliquis 5 mg 1 pill twice daily. Recommendation is for the patient to follow up with cardiology within 1 week to follow up this hospitalization. Patient will require cardiac stress tests as an outpatient to further assess his condition. If atrial fibrillation persists patient may require cardioversion as an outpatient. Education on atrial fibrillation, chronic anti coagulation therapy-Eliquis and Betapace will be provided. Please note aspirin has been discontinued. 3. Patient with history of hypertension. Medication adjusted. Patient no longer taking lisinopril since the patient has done well with Betapace. Recommendation is to maintain blood pressures less 150 /80. Further adjustment can be done by his PCP. 4. Patient with hyperlipidemia. Patient will continue with Lipitor 20 mg daily. 5. Patient with mild renal insufficiency. Patient likely with underlying chronic kidney disease stage 3. Patient has seen Nephrology in the past. Lisinopril discontinued. Future medications will need to be renally dosed. Recommendation on no further use of nonsteroidal anti-inflammatories. Recommendation to recheck lab-BMP in 1 week to monitor his progress. Recommendation is for the patient follow up with nephrology in outpatient to further monitor and address. 6. Patient had mild thrombocytopenia. Patient will be on chronic anti coagulation therapy for his atrial fibrillation. Recommendation to recheck lab-CBC in 1 week to monitor his progress. 7. Patient has BPH. Patient seen by urology as an outpatient. Patient will continue with Flomax 0.4 mg daily. Patient will need to inform urology that the patient is on new medication for atrial fibrillation. 8. Patient likely with underlying GERD. Patient will continue with Protonix 40 mg 1 pill once daily. Diet: AHA Activity: Ad sharmin Time spent managing pt's care (in minutes): 55
== END 2018-03-22 11:25 | disposition home or self-care (01) | DRG 310 ==
LOC: ER 09:40 → ERHOLD 10:48 → 2ND 12:17 → OBSVTOIN 03-21 10:32
PROVIDERS: ADMIT Family Medicine; ATTEND Family Medicine
DX: I48.91 Unspecified atrial fibrillation (principal); D69.6 Thrombocytopenia, unspecified; E78.5 Hyperlipidemia, unspecified; N40.0 Benign prostatic hyperplasia without lower urinary tract symptoms; N28.9 Disorder of kidney and ureter, unspecified; I12.9 Hypertensive chronic kidney disease with stage 1 through stage 4 chronic kidney disease, or unspecified chronic kidney disease; N18.3 Chronic kidney disease, stage 3 (moderate); K21.9 Gastro-esophageal reflux disease without esophagitis
CPT/HCPCS: 36415; 71045; 80048; 80061; 80076; 81003; 82550; 82553; 83735; 83880; 84439; 84443; 84484; 85025; 85610; 93005; 93306; 96372; 96374; 99285; G0378; J1650; J7030

== ENCOUNTER 2018-08-22 20:39 | Emergency (ER) | payer OTHER ==
[2018-08-22 22:01] LABS: Albumin 3.8 g/dL (3.4-5.0); Bilirubin Total 0.9 mg/dL (0.2-1.0); Potassium 4.1 mmol/L (3.5-5.1); Protein, Total 7.2 g/dL (6.4-8.2)
[2018-08-22] MEDS ORDERED: NA CHLORIDE 0.9% 1,000 ML ONE (22:09)
--- NOTE | 2018-08-22 23:22 | ER ---
Nurse's Notes [facility] Name: Ovidio Doty JR. Age: 73 yrs Sex: Male : 1945 Arrival Date: 08/22/2018 Time: 20:42 Bed 2 Private MD: Diagnosis: Asymptomatic hypertension Presentation: 08/22 21:00 Presenting complaint: Patient states: "I am having high blood pressure. at home, my jd3 machine said I was 180/110. I'm not really hurting, but it is causing some chest pressure.". Transition of care: patient was not received from another setting of care. Onset of symptoms was August 22, 2018. Risk Assessment: Do you want to hurt yourself or someone else? Patient reports no desire to harm self or others. Initial Sepsis Screen: Does the patient meet any 2 criteria? No. Patient's initial sepsis screen is negative. Does the patient have a suspected source of infection? No. Patient's initial sepsis screen is negative. Care prior to arrival: None. 21:00 Method Of Arrival: Ambulatory jd3 21:00 Acuity: TIO 3 jd3 Triage Assessment: 21:06 Pain: Denies pain. cc3 21:19 General: Appears in no apparent distress. Behavior is calm, cooperative. ak1 Historical: - Allergies: 21:03 No Known Allergies; jd3 - Home Meds: 21:03 sotalol 80 mg Oral tab 1 tab 2 times per day [Active]; atorvastatin 20 mg Oral tab 1 jd3 tab once daily [Active]; arthrozene daily [Active]; aspirin 81 mg Oral TbEC 1 tab once daily [Active]; lisinopril 30 mg Oral tab 1 tab once daily [Active]; tamsulosin 0.4 mg Oral cp24 1 cap once daily [Active]; - PMHx: 21:03 Hyperlipidemia; Hypertension; High Cholesterol; Irregular heart rate; jd3 - PSHx: 21:03 eye surgery; jd3 - Immunization history:: Adult Immunizations up to date. - Social history:: Smoking status: Patient/guardian denies using tobacco. - Ebola Screening: : Patient negative for fever greater than or equal to 101.5 degrees Fahrenheit, and additional compatible Ebola Virus Disease symptoms. Screenin:17 Abuse screen: Denies threats or abuse. Denies injuries from another. Nutritional ak1 screening: No deficits noted. Tuberculosis screening: No symptoms or risk factors identified. Fall Risk None identified. Assessment: 21:06 General: Appears in no apparent distress. comfortable, Behavior is calm, cooperative, cc3 appropriate for age. Pain: Denies pain. Neuro: Level of Consciousness is awake, alert, obeys commands, Oriented to person, place, time, situation, Appropriate for age. Cardiovascular: Reports chest pressure but not painful Patient's skin is warm and dry. Respiratory: Airway is patent Respiratory effort is even, unlabored, Respiratory pattern is regular, symmetrical. GI: Abdomen is round obese. : No signs and/or symptoms were reported regarding the genitourinary system. EENT: No signs and/or symptoms were reported regarding the EENT system. Derm: No signs and/or symptoms reported regarding the dermatologic system. Musculoskeletal: Circulation, motion, and sensation intact. Range of motion: intact in all extremities. 22:12 Reassessment: Patient appears in no apparent distress at this time. Patient and/or cc3 family updated on plan of care and expected duration. Pain level reassessed. Patient is alert, oriented x 3, equal unlabored respirations, skin warm/dry/pink. 23:50 Reassessment: Patient appears in no apparent distress at this time. Patient and/or cc3 family updated on plan of care and expected duration. Pain level reassessed. Patient is alert, oriented x 3, equal unlabored respirations, skin warm/dry/pink. Dr. Aquino discharged the patient home with prescription given. IV cannula removed and patient left ER vitally stable and ambulatory with steady gait. Patient denies pain at this time. Patient states feeling better. Vital Signs: 21:04 BP 182 / 103; Pulse 52; Resp 17 S; Temp 97.5(O); Pulse Ox 98% on R/A; Weight 106.59 kg jd3 (R); Height 6 ft. 3 in. (190.50 cm) (R); Pain /10; 21:16 BP 167 / 98; Pulse 49; Resp 16; Temp 97.5(O); Pulse Ox 98% on R/A; ak1 22:11 BP 157 / 90; Pulse 47; Resp 15; Pulse Ox 98% on R/A; ak1 23:00 BP 181 / 96; Pulse 46; Resp 18 S; Temp 97.5(O); Pulse Ox 100% on R/A; cc3 23:30 BP 171 / 98; Pulse 52; Resp 17 S; Temp 97.5(O); Pulse Ox 100% on R/A; cc3 21:04 Body Mass Index 29.37 (106.59 kg, 190.50 cm) jd3 ED Course: 20:42 Patient arrived in ED. es 21:01 Triage completed. jd3 21:05 Arm band placed on. jd3 21:05 Inserted saline lock: 20 gauge in left antecubital area, using aseptic technique. Blood cc3 collected. 21:06 Radha Vargas is Primary Nurse. cc3 21:10 Andrew Aquino MD is Attending Physician. ps1 21:16 Patient has correct armband on for positive identification. Placed in gown. Bed in low ak1 position. Call light in reach. Side rails up X 1. Adult w/ patient. security monitor on. Pulse ox on. NIBP on. 23:50 No provider procedures requiring assistance completed. IV discontinued, intact, cc3 bleeding controlled, No redness/swelling at site. Pressure dressing applied. Administered Medications: 21:57 Drug: NS 0.9% 1000 ml Route: IV; Rate: 1 bolus; Site: left antecubital; cc3 23:10 Follow up: Response: No adverse reaction; IV Status: Completed infusion; IV Intake: cc3 1000ml Intake: 23:10 IV: 1000ml; Total: 1000ml. cc3 Outcome: 23:22 Discharge ordered by MD. ps1 23:50 Discharged to home ambulatory. cc3 23:50 Condition: stable 23:50 Discharge instructions given to patient, Instructed on discharge instructions, follow up and referral plans. medication usage, Demonstrated understanding of instructions, follow-up care, medications, Prescriptions given X 1. 23:57 Patient left the ED. cc3 Signatures: Annelise Fitzgerald Amber RN RN ak1 Sundeep Garcia RN RN jAndrew Villanueva MD MD ps1 Radha Vargas cc3 Corrections: (The following items were deleted from the chart) 23:38 23:30 BP 171 / 98; Pulse 48bpm; Resp 17bpm; Spontaneous; Pulse Ox 100% RA; cc3 cc3 06/01 00:59 05/31 23:00 BP 181 / 96; Pulse 46bpm; Resp 18bpm; Spontaneous; Pulse Ox 100% RA; cc3 cc3 08/23 00:59 08/22 23:30 BP 171 / 98; Pulse 52bpm; Resp 17bpm; Spontaneous; Pulse Ox 100% RA; cc3 cc3
--- NOTE | 2018-08-22 23:22 | EDPHYS ---
Physician Documentation [facility] Name: Ovidio Doty JR. Age: 73 yrs Sex: Male : 1945 Arrival Date: 08/22/2018 Time: 20:42 Bed 2 Private MD: ED Physician Andrew Aqunio HPI: 08/22 21:42 This 73 yrs old Male presents to ER via Ambulatory with complaints of High ps1 Blood Pressure. 21:42 patient with essentially asymptomatic hypertension. Hx of afib on sotalol. Has not ps1 checked his blood pressure in months. States that he was working in the yard today and his noticed that his face was flushed. She told him to take his blood pressure to see what it was. Noticed systolic of 180. Currently asymptomatic but just feels as though something isnt right. Denies CP, SOB, nausea, abd pain, weakness. Essentially feels fatigue. . Historical: - Allergies: 21:03 No Known Allergies; jd3 - Home Meds: 21:03 sotalol 80 mg Oral tab 1 tab 2 times per day [Active]; atorvastatin 20 mg Oral tab 1 jd3 tab once daily [Active]; arthrozene daily [Active]; aspirin 81 mg Oral TbEC 1 tab once daily [Active]; lisinopril 30 mg Oral tab 1 tab once daily [Active]; tamsulosin 0.4 mg Oral cp24 1 cap once daily [Active]; - PMHx: 21:03 Hyperlipidemia; Hypertension; High Cholesterol; Irregular heart rate; jd3 - PSHx: 21:03 eye surgery; jd3 - Immunization history:: Adult Immunizations up to date. - Social history:: Smoking status: Patient/guardian denies using tobacco. - Ebola Screening: : Patient negative for fever greater than or equal to 101.5 degrees Fahrenheit, and additional compatible Ebola Virus Disease symptoms. ROS: 21:42 Constitutional: Negative for fever, chills, and weight loss, Eyes: Negative for injury, ps1 pain, redness, and discharge, ENT: Negative for injury, pain, and discharge, Cardiovascular: Negative for chest pain, palpitations, and edema, Respiratory: Negative for shortness of breath, cough, wheezing, and pleuritic chest pain, Abdomen/GI: Negative for abdominal pain, nausea, vomiting, diarrhea, and constipation, MS/Extremity: Negative for injury and deformity, Skin: Negative for injury, rash, and discoloration, Neuro: Negative for headache, weakness, numbness, tingling, and seizure, Psych: Negative for depression, anxiety, suicide ideation, homicidal ideation, and hallucinations. Exam: 21:42 Constitutional: This is a well developed, well nourished patient who is awake, alert, ps1 and in no acute distress. Head/Face: Normocephalic, atraumatic. Eyes: Pupils equal round and reactive to light, extra-ocular motions intact. Lids and lashes normal. Conjunctiva and sclera are non-icteric and not injected. ENT: Nares patent. No nasal discharge, no septal abnormalities noted. Tympanic membranes are normal and external auditory canals are clear. Oropharynx with no redness, swelling, or masses, exudates, or evidence of obstruction, uvula midline. Mucous membranes moist. Chest/axilla: Normal chest wall appearance and motion. Nontender with no deformity. No lesions are appreciated. Respiratory: Lungs have equal breath sounds bilaterally, clear to auscultation and percussion. No rales, rhonchi or wheezes noted. No increased work of breathing, no retractions or nasal flaring. Abdomen/GI: Soft, non-tender, with normal bowel sounds. No distension or tympany. No guarding or rebound. No evidence of tenderness throughout. Skin: Warm, dry with normal turgor. Normal color with no rashes, no lesions, and no evidence of cellulitis. MS/ Extremity: Pulses equal, no cyanosis. Neurovascular intact. Full, normal range of motion. Neuro: Awake and alert, GCS 15, oriented to person, place, time, and situation. Cranial nerves II-XII grossly intact. Sensory grossly intact. 21:42 Cardiovascular: Rate: bradycardic, Rhythm: regular, Pulses: no pulse deficits are appreciated, Edema: is not appreciated. Vital Signs: 21:04 BP 182 / 103; Pulse 52; Resp 17 S; Temp 97.5(O); Pulse Ox 98% on R/A; Weight 106.59 kg jd3 (R); Height 6 ft. 3 in. (190.50 cm) (R); Pain 04/03; 21:16 BP 167 / 98; Pulse 49; Resp 16; Temp 97.5(O); Pulse Ox 98% on R/A; ak1 22:11 BP 157 / 90; Pulse 47; Resp 15; Pulse Ox 98% on R/A; ak1 23:00 BP 181 / 96; Pulse 46; Resp 18 S; Temp 97.5(O); Pulse Ox 100% on R/A; cc3 23:30 BP 171 / 98; Pulse 52; Resp 17 S; Temp 97.5(O); Pulse Ox 100% on R/A; cc3 21:04 Body Mass Index 29.37 (106.59 kg, 190.50 cm) jd3 MDM: 21:36 Patient medically screened. ps1 23:19 Data reviewed: vital signs, nurses notes, lab test result(s), EKG, and as a result, I ps1 will discharge patient. Counseling: I had a detailed discussion with the patient and/or guardian regarding: the historical points, exam findings, and any diagnostic results supporting the discharge/admit diagnosis, the presence of at least one elevated blood pressure reading (>120/80) during this emergency department visit, the need for outpatient follow up. ED course: Patient remains asymptomatic. Home with hctz 25mg and follow up with Dr. Vora. 08/22 21:28 Order name: CMP; Complete Time: 22:08 ps1 08/22 21:35 Order name: CBC with Diff ps1 08/22 21:35 Order name: Troponin (emerg Dept Use Only); Complete Time: 22:08 ps1 Administered Medications: 21:57 Drug: NS 0.9% 1000 ml Route: IV; Rate: 1 bolus; Site: left antecubital; cc3 23:10 Follow up: Response: No adverse reaction; IV Status: Completed infusion; IV Intake: cc3 1000ml Disposition: 08/22/18 23:22 Discharged to Home. Impression: Asymptomatic hypertension. - Condition is Stable. - Discharge Instructions: Hypertension. - Prescriptions for Hydrochlorothiazide 25 mg Oral Tablet - take 1 tablet by ORAL route once daily .; 30 tablet. - Medication Reconciliation Form, Thank You Letter, Antibiotic Education, Prescription Opioid Use form. - Follow up: Emergency Department; When: As needed; Reason: Worsening of condition. Follow up: Private Physician; When: As needed; Reason: Recheck today's complaints, Continuance of care, Re-evaluation by your physician. - Problem is chronic. - Symptoms are unchanged. Signatures: Dispatcher [employer] Sundeep Hull RN RN jd3 Andrew Aquino MD MD ps1 Radha Vargas cc3 Corrections: (The following items were deleted from the chart) 23:57 23:22 08/22/2018 23:22 Discharged to Home. Impression: Asymptomatic hypertension. cc3 Condition is Stable. Forms are Medication Reconciliation Form, Thank You Letter, Antibiotic Education, Prescription Opioid Use. Follow up: Emergency Department; When: As needed; Reason: Worsening of condition. Follow up: Private Physician; When: As needed; Reason: Recheck today's complaints, Continuance of care, Re-evaluation by your physician. Problem is chronic. Symptoms are unchanged. ps1
[2018-08-22 23:28] LABS: Absolute Lymphocytes (CBC) 2.6 K/uL (0.7-4.9); Absolute Monocytes 0.6 K/uL (0.1-1.3); Absolute Neutrophil 2.9 K/uL (1.8-8.0); Basophils % 0.6 % (0-1.3); Eosinophils % 2.7 % (0-4.4); Hematocrit 42.6 % (39.6-49.0); Lymphocytes % 41.2 % (15.3-44.8); MPV 8.5 fL (7.6-11.3); Monocytes % 9.6 % (3.3-12.3); RBC Red Blood Cell Count 4.85 M/uL (4.33-5.43)
--- NOTE | 2018-08-23 08:33 | EKG ---
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
== END 2018-08-22 23:57 | disposition home or self-care (01) ==
LOC: ER 20:39
DX: I10 Essential (primary) hypertension (principal); E78.5 Hyperlipidemia, unspecified; E78.00 Pure hypercholesterolemia, unspecified; Z79.82 Long term (current) use of aspirin
CPT/HCPCS: 93005; 85025; 36415; 84484; 80053; 96360; 99284; J7030

== ENCOUNTER 2018-09-27 15:17 | Observation (INO) | payer OTHER ==
[2018-09-27 15:51] LABS: Absolute Lymphocytes (CBC) 0.4 K/uL (0.7-4.9); Basophils % 0.3 % (0-1.3); Eosinophils % 0.7 % (0-4.4); Hematocrit 49.4 % (39.6-49.0); MPV 7.8 fL (7.6-11.3); Monocytes % 7.5 % (3.3-12.3); Protime INR 1.11; RBC Red Blood Cell Count 5.47 M/uL (4.33-5.43)
[2018-09-27] MEDS ORDERED: NA CHLORIDE 0.9% 1,000 ML ONE ×2 (15:55→18:25)
--- NOTE | 2018-09-27 16:04 | RAD REPORT ---
EXAM DESCRIPTION: RAD - Chest Single View - 09/27/2018 3:50 pm CLINICAL HISTORY: syncope Chest pain. COMPARISON: <Comparisons> FINDINGS: Portable technique limits examination quality. The lungs are grossly clear. The heart is normal in size. No displaced fractures. IMPRESSION: No acute intrathoracic process suspected.
--- NOTE | 2018-09-27 16:05 | RAD REPORT ---
EXAM DESCRIPTION: CT - CTHCSPWOC - 09/27/2018 3:50 pm CLINICAL HISTORY: Trauma, head and neck injury. syncope COMPARISON: No comparisons TECHNIQUE: Axial 5 mm thick images of the head were obtained. Axial 2 mm thick images of the cervical spine were obtained with sagittal and coronal reconstruction images generated and reviewed. All CT scans are performed using dose optimization technique as appropriate and may include automated exposure control or mA/KV adjustment according to patient size. FINDINGS: CT HEAD WITHOUT CONTRAST: No acute hemorrhage, hydrocephalus or extra-axial collection is identified.Mild generalized brain atr ophy is present with mild periventricular and deep white matter chronic microvascular ischemic change s.No areas of brain edema or midline shift. The paranasal sinuses and mastoids are clear.The calvarium is intact. Mild vertebral atherosclerosis. CT CERVICAL SPINE WITHOUT CONTRAST: No fracture or subluxation.Mild lower cervical degenerative changes.No prevertebral soft tissues swel ling is identified. IMPRESSION: No acute intracranial or cervical spine findings.
[2018-09-27 16:10] LABS: ALT/SGPT 39 U/L (12-78); AST/SGOT 25 U/L (15-37); Alkaline Phosphatase 68 U/L (45-117); BUN Blood Urea Nitrogen 29 mg/dL (7-18); Bicarbonate 29 mmol/L (21-32); Bilirubin Direct 0.3 mg/dL (0-0.2); Bilirubin Total 1.6 mg/dL (0.2-1.0); Glucose Level 124 mg/dL (74-106); Magnesium 2.2 mg/dL (1.8-2.4); NT PRO-BNP 141 pg/mL (<125); Potassium 3.9 mmol/L (3.5-5.1); Protein, Total 7.7 g/dL (6.4-8.2); Sodium Level 143 mmol/L (136-145); Troponin (Emerg Dept Use Only) < 0.02 ng/mL (0.0-0.045)
[2018-09-27 16:15] LABS: Blood Morphology Comment NOT SEEN (NOT SEEN); Platelet Estimate DECR; Urine White Blood Cell Casts OK
--- NOTE | 2018-09-27 17:06 | RAD REPORT ---
EXAM DESCRIPTION: CT - Stone Protocol - 09/27/2018 4:44 pm CLINICAL HISTORY: Flank pain. Abd pain;Flank pain COMPARISON: <Comparisons> TECHNIQUE: Axial images were obtained without oral or IV contrast. Lack of contrast limits solid org an and vascular assessment. The [id number] spans the entirety of the system partially obscuring uppermost abdomen and lung bases. Coronal reformatted images were obtained and reviewed. All CT scans are performed using dose optimization technique as appropriate and may include automated exposure control or mA/KV adjustment according to patient size. FINDINGS: The lower lung you are clear. Multiple benign appearing cystic lesions are present in the liver, the largest measuring 7.5 cm.Splee n is unremarkable. The pancreas and adrenal glands are normal. No pathologic lymphadenopathy in the a bdomen or pelvis. No urinary tract stones or obstructive uropathy. No bowel obstruction, free air, free fluid or abscess. Normal appendix noted. Moderate lumbar degenerative changes, greatest at L5-S1. Small bilateral fat containing inguinal juma ias. IMPRESSION: No urinary tract stones or obstructive uropathy.
[2018-09-27 17:14] LABS: Urine Bacteria <20 /HPF (NONE SEEN); Urine Culture Reflex Order NOT NEEDED; Urine Mucus 2+ /HPF (NONE SEEN); Urine RBC <5 /HPF (NONE SEEN)
--- NOTE | 2018-09-27 17:39 | ER ---
Nurse's Notes [facility] Name: Ovidio Doty JR. Age: 73 yrs Sex: Male : 1945 Arrival Date: 09/27/2018 Time: 15:20 Bed 23 Private MD: Diagnosis: Orthostatic hypotension;Syncope and collapse Presentation: 09/27 15:23 Presenting complaint: Patient states: I have been feeling nausea and having diarrhea la1 today. I was walking in the house and felt really lightheaded then I passed out and hit my nose, mouth, and both my knees on the entertainment center, I do take a blood thinner as well. Transition of care: patient was not received from another setting of care. Onset of symptoms was September 27, 2018. Risk Assessment: Do you want to hurt yourself or someone else? Patient reports no desire to harm self or others. Initial Sepsis Screen: Does the patient meet any 2 criteria? No. Patient's initial sepsis screen is negative. Does the patient have a suspected source of infection? No. Patient's initial sepsis screen is negative. Care prior to arrival: None. 15:23 Method Of Arrival: Wheelchair la1 15:23 Acuity: TIO 2 la1 15:30 Mechanism of Injury: Fall. Trauma event details: Injury occurred in the [facility], Injury occurred: at home. Injury occurred: September 27, 2018. Trauma Activation: Alert Physician: ED Physician; Name: ; Notified At: ; Arrived At: Physician: General Surgeon; Name: ; Notified At: ; Arrived At: Physician: Radiology; Name: ; Notified At: ; Arrived At: Physician: Respiratory; Name: ; Notified At: ; Arrived At: Physician: Lab; Name: ; Notified At: ; Arrived At: Historical: - Allergies: 15:26 No Known Allergies; la1 - Home Meds: 19:14 arthrozene daily [Active]; aspirin 81 mg Oral TbEC 1 tab once daily [Active]; aj atorvastatin 20 mg Oral tab 1 tab once daily [Active]; lisinopril 30 mg Oral tab 1 tab once daily [Active]; sotalol 80 mg Oral tab 1 tab 2 times per day [Active]; tamsulosin 0.4 mg Oral cp24 1 cap once daily [Active]; Hydrochlorothiazide Oral [Active]; - PMHx: 15:26 High Cholesterol; Hyperlipidemia; Hypertension; Irregular heart rate; la1 - PSHx: 19:14 eye surgery; aj - Immunization history:: Adult Immunizations up to date. - Social history:: Smoking status: Patient/guardian denies using tobacco. - Immunization history: Last tetanus immunization: unknown. - Ebola Screening: : No symptoms or risks identified at this time. Screenin:41 Abuse screen: Denies threats or abuse. Denies injuries from another. Tuberculosis aj screening: No symptoms or risk factors identified. 15:43 Nutritional screening: No deficits noted. Fall Risk None identified. aj Primary Survey: 15:41 NO uncontrolled hemorrhage observed. A: The patient is alert. Airway: patent. aj Breathing/Chest: Respiratory pattern: regular, Respiratory effort: spontaneous, unlabored, Chest inspection: symmetrical rise and fall of the chest. Circulation: Cardiac rhythm: sinus rhythm Skin color: pink. Disability Alert. Exposure/Environment: There is no evidence of uncontrolled external bleeding. 16:30 Reassessment Airway Airway Patent Breathing/Chest Respiratory pattern Regular aj Respiratory effort Spontaneous Unlabored Breath sounds Clear Chest inspection Symmetrical Circulation Heart rhythm Sinus rhythm Color [place] Disability Alert. Assessment: 15:43 General: Appears in no apparent distress. comfortable, Behavior is calm, cooperative, aj appropriate for age. Pain: Complains of pain in nose and left nostril. Neuro: Level of Consciousness is awake, alert, obeys commands, Oriented to person, place, time, situation, Appropriate for age Hepatologist are equal bilaterally Speech is normal, Facial symmetry appears normal. Respiratory: Airway is patent Respiratory effort is even, unlabored, Respiratory pattern is regular, symmetrical. 16:36 Reassessment: Patient appears in no apparent distress at this time. No changes from aj previously documented assessment. Patient and/or family updated on plan of care and expected duration. Pain level reassessed. Patient is alert, oriented x 3, equal unlabored respirations, skin warm/dry/pink. Patient denies pain at this time. Patient states feeling better. Patient states symptoms have improved. 17:25 Reassessment: Patient unable to tolerate standing during orthostatic vitals. Reported aj dizziness and feeling faint. Provider notified. 17:40 Reassessment: Patient provided with clear liquid meal tray. aj 19:30 Reassessment: No changes from previously documented assessment. Patient and/or family fv updated on plan of care and expected duration. Pain level reassessed. Patient is alert, oriented x 3, equal unlabored respirations, skin warm/dry/pink. Vital Signs: 15:26 BP 102 / 74; Pulse 87; Resp 16; Temp 98.4; Pulse Ox 98% on R/A; Weight 104.33 kg; la1 Height 6 ft. 3 in. (190.50 cm); 15:59 BP 110 / 79; Pulse 86; Resp 19; Pulse Ox 95% on R/A; aj 16:37 BP 103 / 76; Pulse 86; Resp 17; Pulse Ox 98% on R/A; aj 17:02 BP 126 / 70; Pulse 86; Resp 18; Pulse Ox 96% on R/A; aj 17:19 BP 109 / 78 Supine; Pulse 86; Resp 17; Pulse Ox 99% on R/A; aj 17:21 BP 101 / 75 Sitting; Pulse 91; aj 18:05 BP 109 / 77; Pulse 89; Resp 16; Pulse Ox 98% on R/A; aj 19:11 BP 122 / 78; Pulse 82; Resp 16; Pulse Ox 99% on R/A; aj 20:21 BP 128 / 77; Pulse 97; Resp 20; Temp 98.6; Pulse Ox 98% ; fv 20:42 Temp 99.1; fv 15:26 Body Mass Index 28.75 (104.33 kg, 190.50 cm) la1 Tumtum Coma Score: 15:41 Eye Response: spontaneous(4). Verbal Response: oriented(5). Motor Response: obeys aj commands(6). Total: 15. Trauma Score (Adult): 15:41 Eye Response: spontaneous(1); Verbal Response: oriented(1); Motor Response: obeys aj commands(2); Systolic BP: > 89 mm Hg(4); Respiratory Rate: 10 to 29 per min(4); Tumtum Score: 15; Trauma Score: 12 ED Course: 15:20 Patient arrived in ED. mr 15:25 Triage completed. la1 15:26 Arm band placed on right wrist. la1 15:27 Courtney Rothman, DARRYL is Primary Nurse. aj 15:27 [facility] snw 15:27 Vu Keith MD is Attending Physician. snw 15:41 Patient has correct armband on for positive identification. Placed in gown. Bed in low aj position. Side rails up X 1. 15:43 teletypesetter monitor on. Pulse ox on. NIBP on. aj 15:43 Inserted saline lock: 20 gauge in right antecubital area, using aseptic technique. aj Blood collected. 15:50 CT completed. Patient tolerated procedure well. Patient moved back from CT. mw3 15:51 XRAY Chest (1 view) In Process Unspecified. EDMS 15:51 CT Head C Spine In Process Unspecified. EDMS 16:44 CT completed. Patient tolerated procedure well. Patient moved back from CT. mw3 16:44 CT Stone Protocol In Process Unspecified. EDMS 17:30 Thermoregulation: warm blanket given to patient. aj 17:38 Ash Gilliland MD is Hospitalizing Provider. snw 19:10 No provider procedures requiring assistance completed. Patient admitted, IV remains in aj place. intact. 19:11 Report given to Jaja. aj 19:13 Patient maintains SpO2 saturation greater than 95% on room air. aj 20:43 2040 Verbalized pain in the knee and headache, Tramadol 50 mg given orally, seen fv patient sitting no report of dizziness at this time. Administered Medications: 16:00 Drug: NS 0.9% 500 ml Route: IV; Rate: bolus; Site: right antecubital; aj 18:06 Follow up: Response: No adverse reaction; IV Status: Completed infusion; IV Intake: aj 500ml 16:17 Drug: NS 0.9% 1000 ml Route: IV; Rate: 125 ml/hr; Site: right antecubital; aj 17:26 Drug: NS 0.9% 500 ml Route: IV; Rate: bolus; Site: right antecubital; aj 18:07 Follow up: Response: No adverse reaction; IV Status: Completed infusion; IV Intake: aj 500ml Point of Care Testing: Blood Glucose: 15:59 Blood Glucose: 131 mg/dL; aj Ranges: Intake: 18:06 IV: 500ml; Total: 500ml. aj 18:07 IV: 500ml; Total: 1000ml. aj 18:12 PO: 600ml (Juice); Total: 1600ml. aj 18:12 IV: 1000ml (IV Fluid); Total: 2600ml. aj Output: 18:12 Urine: 300ml (Voided); Total: 300ml. aj 19:49 Urine: 200ml (Voided); Total: 500ml. ca1 Outcome: 17:38 Decision to Hospitalize by Provider. snw 19:11 Admitted to ER Hold. Please see [facility] for further documentation. aj 19:11 Condition: good 19:11 Instructed on the need for admit. 19:12 Patient's length of stay in the Emergency Department was greater than 2 hours. aj 09/28 00:08 Patient left the ED. lt1 Signatures: Dispatcher [employer] EDCourtney Manuel, RN RN Lizette Brownlee, RAILWAY SHUNTER-C RAILWAY SHUNTER-Csnw KhdaarSelene Savana, Rad RN RN la1 Antonio Kerr RN RN fv Willis, Michelle mw3 Chelsea Marx RN RN ca1 Kala Castro lt1
--- NOTE | 2018-09-27 17:39 | EDPHYS ---
Physician Documentation [facility] Name: Ovidio Doty JR. Age: 73 yrs Sex: Male : 1945 Arrival Date: 09/27/2018 Time: 15:20 Bed 23 Private MD: ED Physician Vu Keith HPI: 09/27 15:42 This 73 yrs old Male presents to ER via Wheelchair with complaints of Fall snw Injury, Dizziness. 15:42 Details of fall: The patient fell from an upright position, while standing. Onset: The snw symptoms/episode began/occurred suddenly, this morning. Associated injuries: The patient sustained injury to the head. Severity of symptoms: At their worst the symptoms were moderate. The patient has not experienced similar symptoms in the past. The patient has not recently seen a physician, MD in [place]. Historical: - Allergies: 15:26 No Known Allergies; la1 - Home Meds: 19:14 arthrozene daily [Active]; aspirin 81 mg Oral TbEC 1 tab once daily [Active]; aj atorvastatin 20 mg Oral tab 1 tab once daily [Active]; lisinopril 30 mg Oral tab 1 tab once daily [Active]; sotalol 80 mg Oral tab 1 tab 2 times per day [Active]; tamsulosin 0.4 mg Oral cp24 1 cap once daily [Active]; Hydrochlorothiazide Oral [Active]; - PMHx: 15:26 High Cholesterol; Hyperlipidemia; Hypertension; Irregular heart rate; la1 - PSHx: 19:14 eye surgery; aj - Immunization history:: Adult Immunizations up to date. - Social history:: Smoking status: Patient/guardian denies using tobacco. - Immunization history: Last tetanus immunization: unknown. - Ebola Screening: : No symptoms or risks identified at this time. ROS: 15:39 Constitutional: Negative for fever, chills, and weight loss, Eyes: Negative for injury, snw pain, redness, and discharge, ENT: Negative for injury, pain, and discharge, Neck: Negative for injury, pain, and swelling, Cardiovascular: Negative for chest pain, palpitations, and edema, Respiratory: Negative for shortness of breath, cough, wheezing, and pleuritic chest pain. 15:41 Back: Negative for injury and pain, : Negative for injury, bleeding, discharge, and snw swelling, MS/Extremity: Negative for injury and deformity, Skin: Negative for injury, rash, and discoloration, Neuro: Negative for headache, weakness, numbness, tingling, and seizure. 15:41 Abdomen/GI: Positive for nausea, vomiting, and diarrhea. Exam: 15:38 Head/Face: Normocephalic, atraumatic. Eyes: Pupils equal round and reactive to light, snw extra-ocular motions intact. Lids and lashes normal. Conjunctiva and sclera are non-icteric and not injected. Cornea within normal limits. Periorbital areas with no swelling, redness, or edema. ENT: Nares patent. No nasal discharge, no septal abnormalities noted. Tympanic membranes are normal and external auditory canals are clear. Oropharynx with no redness, swelling, or masses, exudates, or evidence of obstruction, uvula midline. Mucous membranes moist. Neck: Trachea midline, no thyromegaly or masses palpated, and no cervical lymphadenopathy. Supple, full range of motion without nuchal rigidity, or vertebral point tenderness. No Meningismus. Chest/axilla: Normal chest wall appearance and motion. Nontender with no deformity. No lesions are appreciated. Cardiovascular: Regular rate and rhythm with a normal S1 and S2. No gallops, murmurs, or rubs. Normal PMI, no JVD. No pulse deficits. Respiratory: Lungs have equal breath sounds bilaterally, clear to auscultation and percussion. No rales, rhonchi or wheezes noted. No increased work of breathing, no retractions or nasal flaring. Abdomen/GI: Soft, non-tender, with normal bowel sounds. No distension or tympany. No guarding or rebound. No evidence of tenderness throughout. Back: No spinal tenderness. No costovertebral tenderness. Full range of motion. 15:38 MS/ Extremity: Pulses equal, no cyanosis. Neurovascular intact. Full, normal range of motion. 15:38 Constitutional: The patient appears awake, listless. 15:38 Skin: Appearance: normal except for affected area, injury, contusion(s), that are deep, of the left nostril, and upper right lip, Turgor: is poor. 15:38 Neuro: Orientation: appropriate for stated age, Mentation: slow to respond, Sensation: is normal. 16:08 ECG was reviewed by the Attending Physician. snw Vital Signs: 15:26 BP 102 / 74; Pulse 87; Resp 16; Temp 98.4; Pulse Ox 98% on R/A; Weight 104.33 kg; la1 Height 6 ft. 3 in. (190.50 cm); 15:59 BP 110 / 79; Pulse 86; Resp 19; Pulse Ox 95% on R/A; aj 16:37 BP 103 / 76; Pulse 86; Resp 17; Pulse Ox 98% on R/A; aj 17:02 BP 126 / 70; Pulse 86; Resp 18; Pulse Ox 96% on R/A; aj 17:19 BP 109 / 78 Supine; Pulse 86; Resp 17; Pulse Ox 99% on R/A; aj 17:21 BP 101 / 75 Sitting; Pulse 91; aj 18:05 BP 109 / 77; Pulse 89; Resp 16; Pulse Ox 98% on R/A; aj 19:11 BP 122 / 78; Pulse 82; Resp 16; Pulse Ox 99% on R/A; aj 20:21 BP 128 / 77; Pulse 97; Resp 20; Temp 98.6; Pulse Ox 98% ; fv 20:42 Temp 99.1; fv 15:26 Body Mass Index 28.75 (104.33 kg, 190.50 cm) la1 Alix Coma Score: 15:41 Eye Response: spontaneous(4). Verbal Response: oriented(5). Motor Response: obeys aj commands(6). Total: 15. Trauma Score (Adult): 15:41 Eye Response: spontaneous(1); Verbal Response: oriented(1); Motor Response: obeys aj commands(2); Systolic BP: > 89 mm Hg(4); Respiratory Rate: 10 to 29 per min(4); Jacobson Score: 15; Trauma Score: 12 MDM: 15:37 Patient medically screened. snw 17:36 Data reviewed: vital signs, nurses notes. Data interpreted: Pulse oximetry: on room air snw is 99 %. Interpretation: normal. Counseling: I had a detailed discussion with the patient and/or guardian regarding: the historical points, exam findings, and any diagnostic results supporting the discharge/admit diagnosis, lab results, radiology results, failed orthostatics, will continue ivf and admit. Response to treatment: the patient's symptoms have markedly improved after treatment, but patient failed orthostatic evaluation and was assisted back to bed. Physician consultation: Ash Gilliland MD was called at 17:37, was contacted at 17:37, regarding admission, to the telemetry unit. 09/27 15:28 Order name: Basic Metabolic Panel; Complete Time: 16:22 snw 09/27 15:28 Order name: CBC with Diff; Complete Time: 16:22 snw 09/27 15:28 Order name: LFT's; Complete Time: 16:22 snw 09/27 15:28 Order name: Magnesium; Complete Time: 16:22 snw 09/27 15:28 Order name: NT PRO-BNP; Complete Time: 16:22 snw 09/27 15:28 Order name: PT-INR; Complete Time: 16:03 snw 09/27 15:28 Order name: Troponin (emerg Dept Use Only); Complete Time: 16:22 snw 09/27 15:28 Order name: XRAY Chest (1 view); Complete Time: 16:07 snw 09/27 15:28 Order name: CT Head C Spine; Complete Time: 16:07 snw 09/27 15:37 Order name: Urine Microscopic Only; Complete Time: 17:16 snw 09/27 15:53 Order name: CBC Smear Scan; Complete Time: 16:22 EDMS 09/27 16:27 Order name: CT Stone Protocol; Complete Time: 17:16 snw 09/27 17:00 Order name: Urine Dipstick--Ancillary (enter results); Complete Time: 18:09 eb 09/27 15:28 Order name: EKG; Complete Time: 15:44 snw 09/27 15:28 Order name: Cardiac monitoring; Complete Time: 15:49 snw 09/27 15:28 Order name: EKG - Nurse/Tech; Complete Time: 16:10 snw 09/27 15:28 Order name: IV Saline Lock; Complete Time: 15:49 snw 09/27 15:28 Order name: Labs collected and sent; Complete Time: 15:49 snw 09/27 15:28 Order name: O2 Per Protocol; Complete Time: 15:49 snw 09/27 15:28 Order name: O2 Sat Monitoring; Complete Time: 15:49 snw 09/27 15:37 Order name: FSBS; Complete Time: 15:59 snw 09/27 15:37 Order name: Urine Dipstick-Ancillary (obtain specimen); Complete Time: 17:27 snw 09/27 15:37 Order name: C-Collar; Complete Time: 15:41 snw 09/27 17:17 Order name: Orthostatics; Complete Time: 17:27 snw 09/27 17:27 Order name: Diet Clear Liquid; Complete Time: 17:27 aj 09/27 17:56 Order name: Regular EDMS 09/27 17:57 Order name: CONS Pharmacy Consult EDMS Administered Medications: 16:00 Drug: NS 0.9% 500 ml Route: IV; Rate: bolus; Site: right antecubital; aj 18:06 Follow up: Response: No adverse reaction; IV Status: Completed infusion; IV Intake: aj 500ml 16:17 Drug: NS 0.9% 1000 ml Route: IV; Rate: 125 ml/hr; Site: right antecubital; aj 17:26 Drug: NS 0.9% 500 ml Route: IV; Rate: bolus; Site: right antecubital; aj 18:07 Follow up: Response: No adverse reaction; IV Status: Completed infusion; IV Intake: aj 500ml Point of Care Testing: Blood Glucose: 15:59 Blood Glucose: 131 mg/dL; aj Ranges: Critical Glucose Levels:Adult <50 mg/dl or >400 mg/dl <40 mg/dl or >180 mg/dl Disposition: 09/28 08:10 Co-signature as Attending Physician, Vu Keith MD I agree with the assessment ma2 and plan of care. Disposition: 09/27/18 17:38 Hospitalization ordered by Ash Gilliland for Observation. Preliminary diagnosis are Orthostatic hypotension, Syncope and collapse. - Bed requested for Telemetry/MedSurg (observation). - Status is Observation. lt1 - Condition is Stable. - Problem is new. - Symptoms are unchanged. UTI on Admission? No Signatures: Dispatcher [employer] EDCourtney Manuel RN Lizette Castillo, JOHANNAC UX VISUAL DESIGNER-Ruth Ann Lynn RN RN fc Attema, Lee, RN RN la1 Alzahri, Mohammad, MD MD ms2 Kala Castro lt1 Corrections: (The following items were deleted from the chart) 09/27 19:16 17:38 Hospitalization Ordered by Ash Gilliland MD for Observation. Preliminary aj diagnosis is Orthostatic hypotension; Syncope and collapse. Bed requested for Telemetry/MedSurg (observation). Status is Observation. Condition is Stable. Problem is new. Symptoms are unchanged. UTI on Admission? No. snw 19:17 19:16 09/27/2018 17:38 Hospitalization Ordered by Ash Gilliland MD for Observation. aj Preliminary diagnosis is Orthostatic hypotension; Syncope and collapse. Bed requested for [facility] ER HOLD. Status is Observation. Condition is Stable. Problem is new. Symptoms are unchanged. UTI on Admission? No. aj 21:26 19:17 09/27/2018 17:38 Hospitalization Ordered by Ash Gilliland MD for Observation. fc Preliminary diagnosis is Orthostatic hypotension; Syncope and collapse. Bed requested for Telemetry/MedSurg (observation). Status is Observation. Condition is Stable. Problem is new. Symptoms are unchanged. UTI on Admission? No. aj 09/28 00:08 09/27 21:26 09/27/2018 17:38 Hospitalization Ordered by Ash Gilliland MD for lt1 Observation. Preliminary diagnosis is Orthostatic hypotension; Syncope and collapse. Bed requested for Telemetry/MedSurg (observation). Status is Observation. Condition is Stable. Problem is new. Symptoms are unchanged. UTI on Admission? No. fc
[2018-09-27] MEDS ORDERED: NA CHLORIDE 0.9% 1,000 ML IV SCH (18:00)
--- NOTE | 2018-09-27 18:03 | P.HP ---
Certification for Inpatient With expected LOS: <2 Midnights Patient will require the following post-hospital care: None Practitioner: I am a practitioner with admitting privileges, knowledge of patient current condition, hospital course, and medical plan of care. Services: Services provided to patient in accordance with Admission requirements found in Title 42 Section 412.3 of the Code of Federal Regulations Patient History Date of Service: 09/27/18 (Hospitalist) Reason for admission: Syncope and fall History of Present Illness: Patient is 73 years of age was doing well apparently has some diarrhea this morning became dizzy fell he fell on his days also has some discomfort in his knees patient's blood pressure was low on admission and he was orthostatics nurses were not able to do an orthostatic blood pressure is complained of severe dizziness this happened before the stool that he was dehydrated denies any nausea vomiting there has been no change in his medication patient was started on hydrochlorothiazide in July denies any fever chills cough sputum have some left flank pain for quite Allergies No Known Allergies Allergy (Verified 01/25/17 12:31) Home Medications: Atorvastatin Calcium [Lipitor*] 20 mg PO BEDTIME 01/25/17 Tamsulosin [Flomax*] 1 cap PO DAILY 03/20/18 Apixaban [Eliquis] 5 mg PO BID #60 tablet 03/22/18 Pantoprazole [Protonix Tab*] 40 mg PO DAILYAC #30 tab 03/22/18 Sotalol HCl [Betapace*] 80 mg PO BID 6AM 6PM #60 tab 03/22/18 - Past Medical/Surgical History Diabetic: No -: Hypertension -: Hyperlipidemia -: BPH -: Atrial fibrillation -: Cataracts Psychosocial/ Personal History: Patient is . He has no children. 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 - Family History Father -: Cancer Mother -: Stroke - Social History Alcohol use: No CD- Drugs: No Caffeine use: No Review of Systems 10-point ROS is otherwise unremarkable General: Weakness Musculoskeletal: Leg Pain Physical Examination - Vital Signs Temperature: 98.4 F Blood Pressure: 101/75 Pulse: 86 Respirations: 17 Pulse Ox (%): 98 - Physical Exam General: Alert, In no apparent distress, Oriented x3 Neck: Supple Respiratory: Clear to auscultation bilaterally Cardiovascular: No edema, Normal pulses, Normal S1 S2 Gastrointestinal: Normal bowel sounds, Soft and benign Musculoskeletal: No clubbing, No swelling Integumentary: No rashes, No breakdown Neurological: Normal speech, Normal strength at 5/5 x4 extr - Studies Laboratory Data (last 24 hrs) 09/27/18 15:36: PT 13.0 H, INR 1.11 09/27/18 15:36: WBC 9.6, Hgb 16.6, Hct 49.4 H, Plt Count 96 L 09/27/18 15:36: Sodium 143, Potassium 3.9, BUN 29 H, Creatinine 1.52 H, Glucose 124 H, Magnesium 2.2, Total Bilirubin 1.6 H, AST 25, ALT 39, Alkaline Phosphatase 68 Assessment and Plan - Problems (Diagnosis) (1) Syncope Current Visit: Yes Status: Acute Plan: Patient is 73 years of age, became dizzy this morning fell on his face he is orthostatic currently walked in his lawn yesterday this is a recurrent episode last 1 was a few years ago it recently had a little diarrhea history of AFib renal insufficiency urinalysis negative imaging screen is negative CBCs normal probably is dehydrated will volume to treat with IV fluids ovoid diuretics continue to monitor is not in AFib possible discharge tomorrow Qualifiers: Syncope type: unspecified Qualified Code(s): R55 - Syncope and collapse - Advance Directives Does patient have a Living Will: No Does patient have a Durable POA for Healthcare: No
[2018-09-27 18:07] LABS: Urine Blood NEGATIVE (NEG); Urine Glucose NEGATIVE (NEG); Urine Protein TRACE (NEG); Urine Specific Gravity 1.015 (1.005-1.030)
[2018-09-27] MEDS ORDERED: TRAMADOL HCL 50 MG TAB ONE (20:55)
[2018-09-27] MEDS: TRAMADOL HCL 50 MG TAB PO PRN (21:25)
[2018-09-28 06:49] LABS: Absolute Lymphocytes (CBC) 0.7 K/uL (0.7-4.9); Basophils % 0.4 % (0-1.3); Eosinophils % 0.1 % (0-4.4); Hematocrit 39.6 % (39.6-49.0); Lymphocytes % 10.3 % (15.3-44.8); MPV 8.1 fL (7.6-11.3); Monocytes % 8.2 % (3.3-12.3); RBC Red Blood Cell Count 4.49 M/uL (4.33-5.43)
[2018-09-28 06:58] LABS: Potassium 3.1 mmol/L (3.5-5.1)
[2018-09-28] MEDS: TRAMADOL HCL 50 MG TAB PO PRN (08:31)
--- NOTE | 2018-09-28 08:44 | EKG ---
Test Date: 2018-09-27 Test Time: 16:06:28 Wiring Mechanic: RADHA MEASUREMENT RESULTS: Intervals: Rate: 85 TN: 162 QRSD: 82 QT: 352 QTc: 418 Jeff: P: 53 TN: 162 QRS: 33 T: 53 INTERPRETIVE STATEMENTS: Normal sinus rhythm Normal ECG Compared to ECG 08/22/2018 21:03:12 Sinus bradycardia no longer present Electronically Signed On 09-28-18 08:42:26 CDT by Mihir Vora
--- NOTE | 2018-09-28 10:02 | P.DS ---
Admission Date: 09/27/18 Discharge Date: 09/28/18 Disposition: ROUTINE DISCHARGE Discharge Condition: FAIR Reason for Admission: Syncope and fall - Problems (1) Syncope Current Visit: Yes Status: Acute Qualifiers: Syncope type: unspecified Qualified Code(s): R55 - Syncope and collapse Brief History of Present Illness: Patient is 73 years of age was doing well apparently has some diarrhea this morning became dizzy fell he fell on his days also has some discomfort in his knees patient's blood pressure was low on admission and he was orthostatics nurses were not able to do an orthostatic blood pressure is complained of severe dizziness this happened before the stool that he was dehydrated denies any nausea vomiting there has been no change in his medication patient was started on hydrochlorothiazide in July denies any fever chills cough sputum have some left flank pain for quite Hospital Course: Patient did well presumed diagnosis of gastroenteritis he was still having diarrhea today with hypokalemia patient ambulated prior to discharge was doing well alert oriented responsive cooperative chest clear abdomen soft cardiovascular system os sounds normal no orthostatic changes he was hypokalemic I prescribed him some potassium instructed to follow up with his primary care physician in use Imodium over the counter Vital Signs/Physical Exam: Temp Pulse Resp BP Pulse Ox 98.6 F 64 18 123/73 97 09/28/18 08:00 09/28/18 08:00 09/28/18 08:00 09/28/18 08:00 09/28/18 08:00 Laboratory Data at Discharge: WBC 6.5 K/uL (4.3-10.9) D 09/28/18 06:25 Hgb 14.1 g/dL (13.6-17.9) D 09/28/18 06:25 Hct 39.6 % (39.6-49.0) D 09/28/18 06:25 Plt Count 92 K/uL (152-406) L 09/28/18 06:25 PT 13.0 SECONDS (9.5-12.5) H 09/27/18 15:36 INR 1.11 09/27/18 15:36 Sodium 140 mmol/L (136-145) 09/28/18 06:25 Potassium 3.1 mmol/L (3.5-5.1) L 09/28/18 06:25 BUN 20 mg/dL (7-18) H 09/28/18 06:25 Creatinine 1.19 mg/dL (0.55-1.3) 09/28/18 06:25 Glucose 109 mg/dL (74-106) H 09/28/18 06:25 Magnesium 2.2 mg/dL (1.8-2.4) 09/27/18 15:36 Total Bilirubin 1.6 mg/dL (0.2-1.0) H 09/27/18 15:36 AST 25 U/L (15-37) 09/27/18 15:36 ALT 39 U/L (12-78) 09/27/18 15:36 Alkaline Phosphatase 68 U/L (45-117) 09/27/18 15:36 Home Medications: Atorvastatin Calcium [Lipitor*] 20 mg PO BEDTIME 01/25/17 Tamsulosin [Flomax*] 1 cap PO DAILY 03/20/18 Apixaban [Eliquis] 5 mg PO BID #60 tablet 03/22/18 Pantoprazole [Protonix Tab*] 40 mg PO DAILYAC #30 tab 03/22/18 Sotalol HCl [Betapace*] 80 mg PO BID 6AM 6PM #60 tab 03/22/18 Potassium Chloride 20 meq PO DAILY #30 tablet.er 09/28/18 New Medications: Potassium Chloride 20 meq PO DAILY #30 tablet.er Patient Discharge Instructions: Patient to follow up with his primary care doctor this week using Imodium over the counter Diet: Regular
[2018-09-28] MEDS ORDERED: POTASSIUM CL SA 10 MEQ TAB PO ONE (10:31)
== END 2018-09-28 11:25 | disposition home or self-care (01) ==
LOC: SUPCPDRO 15:17 → ER 15:17 → ERHOLD 20:25 → 4TH 22:52
PROVIDERS: ADMIT Internal Medicine Sleep Medicine; ATTEND Internal Medicine Sleep Medicine
DX: R55 Syncope and collapse (principal); E87.6 Hypokalemia; R19.7 Diarrhea, unspecified; I10 Essential (primary) hypertension; E78.5 Hyperlipidemia, unspecified; N40.0 Benign prostatic hyperplasia without lower urinary tract symptoms
CPT/HCPCS: 96361; 93005; 85025 ×2; 80048 ×2; 36415; 83735; 85610; 82962; 80076; 84484; 83880; 70450; 72125; 76377; 74176; 71045; 96360; 99285; J7030 ×3; G0378 ×2; 81003; 81015

== ENCOUNTER 2023-07-05 06:36 | Observation (INO) | payer OTHER ==
--- OUTSIDE RECORDS SUMMARY | 2023-07-05 06:39 | XMS REPORT | Continuity of Care Document ---
Author Name Unknown Address [address] [place] [address] [facility] Address [address] [facility] [address] [place] [address] Care Team Providers Care Budget Analyst Name Role Phone TATE Attending Clinician Unavailable TATE Admitting Clinician Unavailable Payers Payer Name Policy Type Policy Number Effective Date Expirati on Date Source Medications Ordered Medication Name Filled Medication Name Start Date Stop Date Current Medication? Ordering Clinician Indication Dosage Frequency Signature (SIG) Comments Components Source dexamethaso ne 6 mg tablet TAKE ONE (1) TABLET(S) BY MOUTH DAILY. dexamethaso ne 6 mg tablet TAKE ONE (1) TABLET(S) BY MOUTH DAILY. No dexamethas one 6 mg tablet TAKE ONE (1) TABLET(S) BY MOUTH DAILY. [facility] hydrochloro thiazide 25 mg tablet TAKE ONE (1) TABLET(S) BY MOUTH ONCE A DAY. hydrochloro thiazide 25 mg tablet TAKE ONE (1) TABLET(S) BY MOUTH ONCE A DAY. No hydrochlor othiazide 25 mg tablet TAKE ONE (1) TABLET(S) BY MOUTH ONCE A DAY. [place] [facility] neomycin-po lymyxin-hyd rocort 3.5 mg-10,000 unit/mL-1 % ear drops,susp INSTILL FOUR (4) TO FIVE (5) DROPS IN EACH EAR TWICE A DAY. neomycin-po lymyxin-hyd rocort 3.5 mg-10,000 unit/mL-1 % ear drops,susp INSTILL FOUR (4) TO FIVE (5) DROPS IN EACH EAR TWICE A DAY. No neomycin-p olymyxin-h ydrocort 3.5 mg-10,000 unit/mL-1 % ear drops,susp INSTILL FOUR (4) TO FIVE (5) DROPS IN EACH EAR TWICE A DAY. [facility] potassium chloride ER 20 mEq tablet,exte nded release TAKE ONE (1) TABLET(S) BY MOUTH ONCE A DAY WITH FOOD. potassium chloride ER 20 mEq tablet,exte nded release TAKE ONE (1) TABLET(S) BY MOUTH ONCE A DAY WITH FOOD. No potassium chloride ER 20 mEq tablet,ext ended release TAKE ONE (1) TABLET(S) BY MOUTH ONCE A DAY WITH FOOD. [facility] sotalol 80 mg tablet TAKE ONE (1) TABLET(S) BY MOUTH TWICE A DAY. sotalol 80 mg tablet TAKE ONE (1) TABLET(S) BY MOUTH TWICE A DAY. No sotalol 80 mg tablet TAKE ONE (1) TABLET(S) BY MOUTH TWICE A DAY. [facility] atorvastati n 20 mg tablet TAKE ONE (1) TABLET(S) BY MOUTH ONCE A DAY. atorvastati n 20 mg tablet TAKE ONE (1) TABLET(S) BY MOUTH ONCE A DAY. No atorvastat in 20 mg tablet TAKE ONE (1) TABLET(S) BY MOUTH ONCE A DAY. [facility] azithromyci n 500 mg tablet azithromyci n 500 mg tablet No azithromyc in 500 mg tablet [facility] Encounters Start Date/Time End Date/Time Encounter Type Admission Type Attending [facility] Care Department Encounter ID Source 2020-07-01 12:28:00 2020-07-01 12:28:00 Outpatient QUITA GARCIA [facility] [id number] [facility] 2020-07-01 00:00:00 2020-07-01 00:00:00 Yary Lay MD: [place] [address] , Ph. [facility] [id number] [facility] 2020-06-02 03:12:00 2020-06-02 03:12:00 Outpatient QUITA GARCIA [facility] [id number] [facility] 2020-06-02 00:00:00 2020-06-02 00:00:00 Yary Lay MD: [address] [place] [address] , Ph. [facility] [id number] [facility] 2020-06-01 11:40:00 2020-06-01 11:40:00 Outpatient QUITA CLOVISJodee [facility] [id number] [facility]
[2023-07-05 07:03] LABS: Absolute Basophils 0.1 K/uL (0-0.5); Absolute Eosinophils 0.1 K/uL (0-0.5); Absolute Lymphocytes (CBC) 1.9 K/uL (0.7-4.9); Absolute Monocytes 0.5 K/uL (0.1-1.3); Absolute Neutrophil 5.4 K/uL (1.8-8.0); Basophils % 0.7 % (0-1.3); Eosinophils % 1.2 % (0-4.4); Hematocrit 43.3 % (39.6-49.0); Lymphocytes % 23.6 % (15.3-44.8); MCHC 34.6 g/dL (32.0-36.0); MCV 89.8 fL (80-100); MPV 6.9 fL (7.6-11.3); Monocytes % 6.9 % (3.3-12.3); Neutrophils % 67.6 % (41.7-73.7); Nucleated Red Blood Cells % 0.2 % (0-0); Platelets 107 thou/uL (152-406); RBC Red Blood Cell Count 4.82 M/uL (4.33-5.43); Red Cell Distribution Width 14.9 % (12.1-15.2)
[2023-07-05 07:05] LABS: PT Prothrombin Time 15.3 SECONDS (9.5-12.5); Protime INR 1.4
[2023-07-05] MEDS ORDERED: MORPHINE 4 MG/ML SYR ONE (07:09)
[2023-07-05] MEDS ORDERED: ONDANSETRON 4 MG/2 ML VIAL ONE (07:09)
[2023-07-05] MEDS ORDERED: dilTIAZem HCL 25 MG/5 ML VIAL IV ONE (07:10)
[2023-07-05] MEDS ORDERED: NA CHLORIDE 0.9% 1,000 ML ONE (07:10)
[2023-07-05 07:21] LABS: Albumin 3.6 g/dL (3.4-5.0); Anion Gap 5.5 mEq/L (5.0-15.0); Bilirubin Direct 0.3 mg/dL (0-0.2); Bilirubin Indirect, Calculated 0.8 mg/dL (0.2-0.8); Bilirubin Total 1.1 mg/dL (0.2-1.0); Globulin 3.5 g/dL (2.3-3.5); Magnesium 2.1 mg/dL (1.6-2.4); Potassium 3.5 mEq/L (3.5-5.1); Protein, Total 7.1 g/dL (6.4-8.2); Troponin High Sensitivity 21.1 pg/mL (<58.9)
[2023-07-05] MEDS ORDERED: METOPROLOL TARTRATE 5 MG/5 ML INJ IV ONE (07:34)
[2023-07-05] MEDS ORDERED: METOPROLOL TAR 50 MG TAB ONE (07:34)
[2023-07-05] MEDS ORDERED: SOTALOL HCL 80 MG TAB ONE (07:37)
--- NOTE | 2023-07-05 07:40 | ER ---
Nurse's Notes [facility] Name: Ovidio Doty Jr Age: 78 yrs Sex: Male : 1945 Arrival Date: 07/05/2023 Time: 06:36 Bed 5 Private MD: Diagnosis: Chest pain, unspecified;Chronic atrial fibrillation;Persistent atrial fibrillation-with RVR Presentation: 07/04 06:47 Chief complaint: Patient states: I started having chest pain that woke me up from a jb4 sound sleep around 3pm. It is a 3/10 pressure pain that is causing my arms to tingle on both sides. Coronavirus screen: At this time, the client does not indicate any symptoms associated with coronavirus-19. Ebola Screen: No symptoms or risks identified at this time. Initial Sepsis Screen: Does the patient meet any 2 criteria? HR > 90 bpm. Yes Does the patient have a suspected source of infection? No. Patient's initial sepsis screen is negative. Risk Assessment: Do you want to hurt yourself or someone else? Patient reports no desire to harm self or others. Onset of symptoms was July 05, 2023. Transition of care: patient was not received from another setting of care. 06:47 Method Of Arrival: Wheelchair jb4 06:47 Acuity: TIO 2 jb4 Triage Assessment: 06:50 General: Appears in no apparent distress. comfortable, Behavior is calm, cooperative, jb4 appropriate for age. Pain: Complains of pain in chest Pain radiates to right arm and left arm Pain currently is 3 out of 10 on a pain scale. Quality of pain is described as pressure, tingling. Neuro: Level of Consciousness is awake, alert, obeys commands, Oriented to person, place, time, situation. Cardiovascular: Patient's skin is warm and dry. Respiratory: Airway is patent Respiratory effort is even, unlabored, Respiratory pattern is regular, symmetrical. Derm: Skin is intact, Skin is pink, warm \T\ dry. Musculoskeletal: Circulation, motion, and sensation intact. Range of motion: intact in all extremities. Historical: - Allergies: 06:50 No Known Allergies; jb4 - PMHx: 06:50 High Cholesterol; Hyperlipidemia; Hypertension; Irregular heart rate; jb4 - PSHx: 06:50 None; jb4 - Immunization history:: Adult Immunizations up to date. - Infectious Disease History:: Denies. - Social history:: Smoking status: Patient denies any tobacco usage or history of. - Family history:: not pertinent. Screenin:56 [facility] ED Fall Risk Assessment (Adult) History of falling in the last 3 months, tm6 including since admission No falls in past 3 months (0 pts) Confusion or Disorientation No (0 pts) Intoxicated or Sedated No (0 pts) Impaired Gait No (0 pts) Mobility Assist Device Used No (0 pt) Altered Elimination No (0 pt) Score/Fall Risk Level 0 - 2 = Low Risk Oriented to surroundings, Maintained a safe environment. Abuse screen: Denies threats or abuse. Denies injuries from another. Nutritional screening: No deficits noted. Tuberculosis screening: No symptoms or risk factors identified. Assessment: 06:56 General: Appears in no apparent distress. Behavior is calm, cooperative. Pain: tm6 Complains of pain in chest Pain radiates to right arm and left arm Pain currently is 3 out of 10 on a pain scale. Quality of pain is described as pressure, Pain began 4 hours ago. Neuro: Level of Consciousness is awake, alert, obeys commands, Oriented to person, place, time, situation, Reports tingling in both arms. Cardiovascular: Reports chest pain, Patient's skin is warm and dry. Rhythm is atrial fibrillation. Respiratory: Airway is patent Respiratory effort is even, unlabored, Respiratory pattern is regular, symmetrical. GI: Abdomen is flat, non-distended, Abd is soft and non tender. : No signs and/or symptoms were reported regarding the genitourinary system. EENT: No signs and/or symptoms were reported regarding the EENT system. Derm: No signs and/or symptoms reported regarding the dermatologic system. Musculoskeletal: No signs and/or symptoms reported regarding the musculoskeletal system. 08:01 Reassessment: Patient and/or family updated on plan of care and expected duration. Pain rs5 level reassessed. Patient is alert, oriented x 3, equal unlabored respirations, skin warm/dry/pink. Patient states feeling better. Pain: Denies pain. Cardiovascular: Rhythm is sinus tachycardia. Respiratory: Airway is patent Respiratory effort is even, unlabored, Respiratory pattern is regular, symmetrical. Vital Signs: 06:47 BP 124 / 95; Pulse 120; Resp 16; Temp 97.7(TE); Pulse Ox 96% on R/A; Weight 108.86 kg jb4 (R); Height 5 ft. 3 in. ; Pain 3/10; 07:19 BP 110 / 82; Pulse 101; Resp 18; Pulse Ox 99% on R/A; rs5 07:40 BP 113 / 81; Pulse 105; Resp 18; Pulse Ox 99% on R/A; rs5 08:01 BP 115 / 77; Pulse 98; Resp 18; Pulse Ox 99% on R/A; rs5 06:47 Body Mass Index 42.51 (108.86 kg, 160.02 cm) jb4 06:47 Pain Scale: Adult jb4 [place] Coma Score: 07:04 Eye Response: spontaneous(4). Motor Response: obeys commands(6). Verbal Response: sp4 oriented(5). Total: 15. ED Course: 06:41 Patient arrived in ED. gm2 06:45 Stephen Todd MD is Attending Physician. sp4 06:50 Triage completed. jb4 06:50 Arm band placed on right wrist. EKG completed in triage. Results shown to MD. jb4 06:55 Basic Metabolic Panel Sent. tm6 06:55 CBC with Diff Sent. tm6 06:55 LFT's Sent. tm6 06:55 Magnesium Sent. tm6 06:55 NT PRO-BNP Sent. tm6 06:55 PT-INR Sent. tm6 06:55 Troponin HS Sent. tm6 06:55 EKG done, by ED staff, reviewed by Stephen Todd MD. Inserted saline lock: 20 gauge tm6 in right wrist, using aseptic technique. O2 via room air. 06:56 Patient has correct armband on for positive identification. Placed in gown. Bed in low tm6 position. Call light in reach. Side rails up X2. Provided Education on: plan of care. Client placed on continuous cardiac and pulse oximetry monitoring. NIBP monitoring applied. stripper opaquer on. Pulse ox on. NIBP on. Door closed. Warm blanket given. 07:06 Neo Whitman, DARRYL is Primary Nurse. rs5 07:13 Attending Physician role handed off by Stephen Todd MD gualberto 07:13 Shan Cotton MD is Attending Physician. gualberto 07:20 No provider procedures requiring assistance completed. rs5 07:38 Carlos Dumont MD is Hospitalizing Provider. gualberto 07:41 XRAY Chest (1 view) In Process Unspecified. EDMS 08:01 Patient admitted, IV remains in place. rs5 Administered Medications: 07:15 Not Given (Duplicate Order): diltiazem 5 mg/hr IV at calculated rate See Administration gualberto Instructions; (standard dilution 125 mg diltiazem mixed in 125 mL NS; final concentration 1mg/mL). Recommended max rate 15 mg/hr; Titrate 5 mg/hr as often as every 15 minutes to achieve goal (see titration policy); Goal parameter HR less than 100 bpm 07:17 Not Given (Pt denies nausea at this momentt): ondansetron 4 mg IVP once; over 2 minutes rs5 07:18 Drug: Diltiazem IVP 10 mg IVP once; Over 2 minutes Route: IVP; Site: right forearm; rs5 07:30 Follow up: Response: No adverse reaction rs5 07:18 Not Given (Pt denies nausea at this momentt): morphineor iv 2 mg IVP once over 4 mins rs5 07:22 Drug: Metoprolol IVP 5 mg IVP once; Hold for SBP <100 or HR <60. Route: IVP; Site: rs5 right forearm; 07:35 Follow up: Response: No adverse reaction rs5 07:27 Not Given (Duplicate Order): aspirinchewable tablet 324 mg PO once; 81 mg tablets x 4 gualberto 07:27 Not Given (Duplicate Order): metoprolol5 mg IVP once; Hold for SBP <100 or HR <60. gualberto 07:44 Drug: Metoprolol PO 50 mg PO once Route: PO; rs5 08:20 Follow up: Response: No adverse reaction rs5 07:44 Drug: Sotalol PO 80 mg PO once Route: PO; rs5 08:20 Follow up: Response: No adverse reaction rs5 07:46 Drug: NS 0.9% IV 1000 ml IV at 125 ml/hr continuous Route: IV; Rate: 125 ml/hr; Site: rs5 right forearm; 08:00 Follow up: Response: No adverse reaction rs5 Medication: 06:56 VIS not applicable for this client. tm6 Outcome: 07:39 Decision to Hospitalize by Provider. gualberto 08:01 Admitted to ER Hold. Please see [employer] for further documentation. rs5 08:01 Condition: stable 08:01 Instructed on the need for admit, Demonstrated understanding of instructions, 13:29 Patient left the ED. Signatures: Dispatcher [employer] Shan Hernandez MD MD cha Williams, Irene RN RN iw Orlando Turner RN RN jb4 Neo Whitman RN RN rs5 Stephen Todd MD MD sp4 Cris Millard 2 Isaias Banks RN RN tm6
--- NOTE | 2023-07-05 07:40 | EDPHYS ---
Physician Documentation [facility] Name: Ovidio Doty Jr Age: 78 yrs Sex: Male : 1945 Arrival Date: 07/05/2023 Time: 06:36 Bed 5 Private MD: ED Physician Shan Cotton HPI: 07/04 07:04 This 78 yrs old Male presents to ER via Wheelchair with complaints of Chest sp4 Pain. 07:04 78-year-old male history of high cholesterol and atrial fibrillation presents with sp4 acute onset midsternal chest pain starting 2 hours prior to arrival. . Historical: - Allergies: 06:50 No Known Allergies; jb4 - PMHx: 06:50 High Cholesterol; Hyperlipidemia; Hypertension; Irregular heart rate; jb4 - PSHx: 06:50 None; jb4 - Immunization history:: Adult Immunizations up to date. - Infectious Disease History:: Denies. - Social history:: Smoking status: Patient denies any tobacco usage or history of. - Family history:: not pertinent. ROS: 07:04 Constitutional: Negative for fever, chills, and weight loss, positive midsternal chest sp4 pain radiation down the left 07:04 All other systems are negative, Exam: 07:04 Constitutional: This is a well developed, well nourished patient who is awake, alert, sp4 and in no acute distress. Head/Face: Normocephalic, atraumatic. Eyes: Pupils equal round and reactive to light, extra-ocular motions intact. Lids and lashes normal. Conjunctiva and sclera are not injected. Cornea within normal limits. Periorbital areas with no swelling, redness, or edema. ENT: Nares patent. No nasal discharge, no septal abnormalities noted. Tympanic membranes are normal and external auditory canals are clear. Oropharynx with no redness, swelling, or masses, exudates, or evidence of obstruction, uvula midline. Mucous membranes moist. Neck: Trachea midline, no thyromegaly or masses palpated, and no cervical lymphadenopathy. Supple, full range of motion without nuchal rigidity, or vertebral point tenderness. Chest/axilla: Normal chest wall appearance and motion. Nontender with no deformity. No lesions are appreciated. Cardiovascular: Irregular heart rate, no gallops, murmurs, or rubs. Normal PMI, no JVD. No pulse deficits. Respiratory: Lungs have equal breath sounds bilaterally, clear to auscultation and percussion. No rales, rhonchi or wheezes noted. No increased work of breathing, no retractions or nasal flaring. Abdomen/GI: Soft, with normal bowel sounds. No distension or tympany. No guarding or rebound. No evidence of tenderness throughout. Back: No spinal tenderness. No costovertebral tenderness. Skin: Warm, dry with normal turgor. Normal color with no rashes, no lesions, and no evidence of cellulitis. MS/ Extremity: Pulses equal, no cyanosis. Neurovascular intact. Full, normal range of motion. Neuro: Awake and alert, GCS 15, oriented to person, place, time, and situation. Cranial nerves II-XII grossly intact. Motor strength 5/5 in all extremities. Sensory grossly intact. Psych: Awake, alert, with orientation to person, place and time. Behavior, mood, and affect are within normal limits 07:04 ECG was reviewed by the Attending Physician. EKG at 0 651, atrial fibrillation with RVR at 128 bpm 07:43 ECG was reviewed by the Attending Physician. gualberto Vital Signs: 06:47 BP 124 / 95; Pulse 120; Resp 16; Temp 97.7(TE); Pulse Ox 96% on R/A; Weight 108.86 kg jb4 (R); Height 5 ft. 3 in. ; Pain 3/10; 07:19 BP 110 / 82; Pulse 101; Resp 18; Pulse Ox 99% on R/A; rs5 07:40 BP 113 / 81; Pulse 105; Resp 18; Pulse Ox 99% on R/A; rs5 08:01 BP 115 / 77; Pulse 98; Resp 18; Pulse Ox 99% on R/A; rs5 06:47 Body Mass Index 42.51 (108.86 kg, 160.02 cm) jb4 06:47 Pain Scale: Adult jb4 [place] Coma Score: 07:04 Eye Response: spontaneous(4). Motor Response: obeys commands(6). Verbal Response: sp4 oriented(5). Total: 15. MDM: 06:46 Patient medically screened. sp4 07:04 Differential diagnosis: abnormal EKG, acute myocardial infarction, acute pericarditis, sp4 anxiety, coronary artery disease chest wall pain, congestive heart failure costochondritis. HEART Score: History: Highly Suspicious (2), ECG: Non specific repolarization disturbance / LBTB / PM (1), Age: > or = 65 years (2), Risk Factors: > or = 3 Risk factors for atherosclerotic disease (2), Troponin: < or = 1 x Normal Limit (0), Total Score = 7. The patient was given aspirin in the Emergency Department. Data reviewed: vital signs, nurses notes, old medical records, lab test result(s), EKG, radiologic studies, plain films. 07:11 Transition of care: After a detail discussion of the patient's case, care is sp4 transferred to Shan Cotton MD. 07/04 06:46 Order name: Basic Metabolic Panel; Complete Time: 07:33 sp4 07/04 06:46 Order name: CBC with Diff; Complete Time: 07:33 sp4 07/04 06:46 Order name: LFT's; Complete Time: 07:33 sp4 07/04 06:46 Order name: Magnesium; Complete Time: 07:33 sp4 07/04 06:46 Order name: NT PRO-BNP; Complete Time: 07:33 sp4 07/04 06:46 Order name: PT-INR; Complete Time: 07:33 sp4 07/04 06:46 Order name: Troponin HS; Complete Time: 07:33 sp4 07/04 08:18 Order name: Troponin High Sensitivity EDMS 07/04 08:18 Order name: Troponin High Sensitivity EDMS 07/04 08:18 Order name: Troponin High Sensitivity EDMS 07/04 06:46 Order name: XRAY Chest (1 view); Complete Time: 07:46 sp4 07/04 06:46 Order name: Cardiac monitoring; Complete Time: 06:55 sp4 07/04 06:46 Order name: EKG - Nurse/Tech; Complete Time: 06:55 sp4 07/04 06:46 Order name: IV Saline Lock; Complete Time: 06:55 sp4 07/04 06:46 Order name: Labs collected and sent; Complete Time: 06:55 sp4 07/04 06:46 Order name: O2 Per Protocol; Complete Time: 06:55 sp4 07/04 06:46 Order name: O2 Sat Monitoring; Complete Time: 06:55 sp4 EC:04 Rate is 128 beats/min. Rhythm is irregularly irregular, A fib with Rapid ventricular sp4 response. QRS [place] is Normal. QRS interval is normal. QT interval is normal. No Q waves. T waves are Normal. No ST changes noted. Clinical impression: No evidence of ischemia. Interpreted by me. Reviewed by me. 07:43 Rate is 125 beats/min. Rhythm is irregularly irregular. QRS [place] is Normal. ND interval gualberto is normal. QRS interval is normal. QT interval is normal. No Q waves. T waves are Normal. No ST changes noted. Clinical impression: Atrial Fibrillation and No evidence of ischemia. Interpreted by me. Reviewed by me. Administered Medications: 07:15 Not Given (Duplicate Order): diltiazem 5 mg/hr IV at calculated rate See Administration gualberto Instructions; (standard dilution 125 mg diltiazem mixed in 125 mL NS; final concentration 1mg/mL). Recommended max rate 15 mg/hr; Titrate 5 mg/hr as often as every 15 minutes to achieve goal (see titration policy); Goal parameter HR less than 100 bpm 07:17 Not Given (Pt denies nausea at this momentt): ondansetron 4 mg IVP once; over 2 minutes rs5 07:18 Drug: Diltiazem IVP 10 mg IVP once; Over 2 minutes Route: IVP; Site: right forearm; rs5 07:30 Follow up: Response: No adverse reaction rs5 07:18 Not Given (Pt denies nausea at this momentt): morphineor iv 2 mg IVP once over 4 mins rs5 07:22 Drug: Metoprolol IVP 5 mg IVP once; Hold for SBP <100 or HR <60. Route: IVP; Site: rs5 right forearm; 07:35 Follow up: Response: No adverse reaction rs5 07:27 Not Given (Duplicate Order): aspirinchewable tablet 324 mg PO once; 81 mg tablets x 4 gualberto 07:27 Not Given (Duplicate Order): metoprolol5 mg IVP once; Hold for SBP <100 or HR <60. gualberto 07:44 Drug: Metoprolol PO 50 mg PO once Route: PO; rs5 08:20 Follow up: Response: No adverse reaction rs5 07:44 Drug: Sotalol PO 80 mg PO once Route: PO; rs5 08:20 Follow up: Response: No adverse reaction rs5 07:46 Drug: NS 0.9% IV 1000 ml IV at 125 ml/hr continuous Route: IV; Rate: 125 ml/hr; Site: rs5 right forearm; 08:00 Follow up: Response: No adverse reaction rs5 Disposition Summary: 07/05/23 07:39 Hospitalization Ordered Notes: Hospitalization Status: Observation gualberto Provider: Carlos Dumont cha Location: Telemetry/[facility]Sur (observation) gualberto Condition: Stable gualberto Problem: new gualbreto Symptoms: have improved gualberto Bed/Room Type: Standard gualberto Room Assignment: 207(07/05/23 11:27) eb Diagnosis - Chest pain, unspecified gualberto - Chronic atrial fibrillation gualberto - Persistent atrial fibrillation - with RVR gualberto Forms: - Medication Reconciliation Form gualberto - SBAR form gualberto - Leadership Thank You Letter gualberto Signatures: Dispatcher [employer] EDShan Smith MD MD cha Attema, Lee, SENIOR GOVERNMENT PROGRAM ANALYST-C SENIOR GOVERNMENT PROGRAM ANALYST-Cla1 Orlando Turner RN RN jb4 Yumiko Duong Ricky, RN RN rs5 Stephen Todd MD MD sp4 Corrections: (The following items were deleted from the chart) 07:39 gualberto eb
--- NOTE | 2023-07-05 07:44 | RAD REPORT ---
EXAM DESCRIPTION: RAD - Chest Single View - 07/05/2023 7:39 am CLINICAL HISTORY: CHEST PAIN COMPARISON: Chest Single View dated 09/27/2018; Chest Single View dated 03/20/2018 FINDINGS: Lines: None. Lungs: No evidence of edema or pneumonia. Pleural: No significant pleural effusions or pneumothorax. Cardiac: The heart size is within normal limits. Mediastinum: Within normal limits. Bones: No acute fractures. Other: None IMPRESSION: No acute cardiopulmonary disease.
[2023-07-05] MEDS ORDERED: DILTIAZEM INJ 125 MG/25 ML 125 MG in NA CHLORIDE 0.9% 100 ML IV SCH (08:00)
--- NOTE | 2023-07-05 14:35 | P.HP ---
Certification for Inpatient Patient admitted to: Observation With expected LOS: <2 Midnights Patient will require the following post-hospital care: None Practitioner: I am a practitioner with admitting privileges, knowledge of patient current condition, hospital course, and medical plan of care. Services: Services provided to patient in accordance with Admission requirements found in Title 42 Section 412.3 of the Code of Federal Regulations Patient History Date of Service: 07/05/23 Reason for admission: Chest pain, A-fib with RVR History of Present Illness: 78-year-old male with history of atrial fibrillation on chronic anticoagulation, hypertension, hyperlipidemia presents emergency department with chief complaint of chest pain. He reports he was awoken around 3 AM with a pulsating chest pain radiating to both arms. Upon arrival to the emergency department patient was noted to be tachycardic with a rate in the 120s to 130s in A-fib. He was initially given IV Cardizem, metoprolol. Subsequently he was given his home dose of 80 mg of sotalol. He had mild improvement in symptoms, had initial high sensitive troponin was normal at 21.2 EKG without STEMI criteria does show atrial fibrillation. ED provider wishes to admit under observation for ACS rule out, atrial fibrillation with rapid ventricular response. Allergies No Known Allergies Allergy (Verified 09/28/18 00:44) Home Medications: Atorvastatin Calcium [Lipitor*] 20 mg PO BEDTIME 01/25/17 Tamsulosin [Flomax*] 1 cap PO DAILY 03/20/18 Apixaban [Eliquis] 5 mg PO BID #60 tablet 03/22/18 Pantoprazole [Protonix Tab*] 40 mg PO DAILYAC #30 tab 03/22/18 Sotalol HCl [Betapace*] 80 mg PO BID 6AM 6PM #60 tab 03/22/18 Potassium Chloride 20 meq PO DAILY #30 tablet.er 09/28/18 - Past Medical/Surgical History Diabetic: No -: Hypertension -: Hyperlipidemia -: BPH -: Atrial fibrillation -: Cataracts Psychosocial/ Personal History: Patient is . He has no children. 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 - Family History Father -: Cancer Mother -: Stroke - Social History Alcohol use: No CD- Drugs: No Caffeine use: Yes Place of Residence: Home Review of Systems 10-point ROS is otherwise unremarkable Cardiovascular: Chest Pain, Palpitations Physical Examination - Vital Signs Temperature: 97.1 F Blood Pressure: 137/104 Pulse: 87 Respirations: 18 Pulse Ox (%): 98 - Physical Exam General: Alert, In no apparent distress, Oriented x3 HEENT: Atraumatic, PERRLA Neck: Supple, 2+ carotid pulse no bruit Respiratory: Clear to auscultation bilaterally, Normal air movement Cardiovascular: Irregular heart rate/rhythm (A-fib rate 110) Gastrointestinal: Normal bowel sounds, No tenderness Musculoskeletal: No tenderness Integumentary: No rashes Neurological: Normal gait, Normal speech, Normal strength at 5/5 x4 extr, Normal tone - Studies Laboratory Data (last 24 hrs) 07/05/23 07/05/23 07/05/23 06:53 06:53 06:53 WBC 7.90 Hgb 15.0 Hct 43.3 Plt Count 107 L PT 15.3 H INR 1.40 Sodium 142 Potassium 3.5 BUN 23 H Creatinine 1.45 H Glucose 111 H Magnesium 2.1 Total Bilirubin 1.1 H AST 26 ALT 37 Alkaline Phosphatase 72 Assessment and Plan - Plan Assessment: Chronic atrial fibrillation with rapid ventricular response on chronic anticoagulation Chest pain rule out ACS Hypertension Hyperlipidemia Plan: Chronic atrial fibrillation with rapid ventricular response on chronic anticoagulation Chest pain rule out ACS Rate has improved, QTc 464 Continue sotalol 80 mg twice daily Cardiology consulted Trend troponin, first 2 troponins within normal limits Monitor on telemetry Hypertension Hyperlipidemia Continue home medications once verified DVT PPX: Continue Eliquis Code status: Full Discharge Plan: Home Plan to discharge in: 24 Hours - Advance Directives Does patient have a Living Will: No Does patient have a Durable POA for Healthcare: No - Code Status/Comfort Care Code Status Assessed: Yes (Full code) Critical Care: No Time Spent Managing Pts Care (In Minutes): 70
[2023-07-05] MEDS: APIXABAN 5 MG TABLET PO SCH (14:42)
[2023-07-05] MEDS: NA CHLORIDE 0.9% 1,000 ML IV SCH (14:42)
[2023-07-05 15:12] VITALS: O2SAT 99
[2023-07-05] MEDS: SOTALOL HCL 80 MG TAB PO SCH (16:38)
[2023-07-05] MEDS ORDERED: METOPROLOL XL 100 MG TAB PO SCH (18:00)
[2023-07-05] MEDS ORDERED: SOTALOL HCL 80 MG TAB PO SCH (18:00)
[2023-07-05 18:58] VITALS: BMI 29.9
--- NOTE | 2023-07-05 19:46 | CON ---
Date of Consultation: 07/05/2023 Reason For Consultation: Chest pain and atrial fibrillation with ventricular response. History Of Present Illness: This is a 78-year-old male, history of atrial fibrillation, chronic anti coagulation, hypertension, dyslipidemia, presented to the emergency room with chief complaint of ches t pain, woke him up at 3 o'clock in the morning. Pain radiates to the both arms, found to be in atri al fibrillation with ventricular response, heart rate in 130s. The patient arrived to the emergency room and given a dose of sotalol and his heart rate went down and felt better. Denies having any [address]yl[address] pain at this moment and feels better as his heart rate is controlled. Past Medical History: Atrial fibrillation, hypertension, dyslipidemia. Medications: Refer reconciliation sheet for detailed list. Allergies: NO KNOWN DRUG ALLERGIES. Family History: No premature coronary artery disease or cancer. Social History: Does not smoke or drink. Does not use any drugs. Review of Systems: All systems reviewed and they were negative except as mentioned in the HPI. Physical Examination: Vital Signs: Reviewed. Head and Neck: Pupils are equal, reactive to light. Intact eye movements. No JVD. No cervical lym phadenopathy. Neck is supple. Thyroid is not enlarged. Lungs: Clear to auscultation bilaterally. No rhonchi, wheezing, or crackles. No accessory muscle u se. Heart: Regular rate and rhythm. No extra sounds. Abdomen: Soft, nontender. Bowel sounds positive. No organomegaly. No masses or hernia. No rigidi ty or rebound. Extremities: No edema, clubbing, or cyanosis. Intact pulses. Skin: No rash or nodule. Neurologic: Alert, awake, oriented x3. No acute focal deficits associated. Lymph Nodes: No cervical or axillary lymphadenopathy. Investigations: Cardiac enzymes x3 are negative. BUN 23, creatinine 1.45, hemoglobin is 15, NT-proB EMPLOYEE COMMUNICATIONS SPECIALIST is 517. Assessment/recommendation: 1.Chest pain. Cardiac enzymes x3 are negative. This is possible demand induced chest pain as he mclean d negative stress test recently. Recommend heart rate control and/or rhythm control for his atrial f ibrillation. See below. 2.Atrial fibrillation. Increase sotalol to 120 mg twice a day and continue Eliquis and after the th ird dose of the sotalol increased, to check an EKG to evaluate QTc interval. 3.Elevated NT-proBNP, probably chronic diastolic heart failure. The patient had recent echo in the office. He does not look fluid overloaded. Continue current management for now. SR/MODL Voice ID: [id number] Report ID: [id number]
[2023-07-05] MEDS: POTASSIUM CL SA 10 MEQ TAB PO SCH (23:55)
[2023-07-06 03:04] LABS: Absolute Eosinophils 0.1 K/uL (0-0.5); Absolute Monocytes 0.7 K/uL (0.1-1.3); Absolute Neutrophil 5.3 K/uL (1.8-8.0); Basophils % 0.3 % (0-1.3); Hematocrit 39.7 % (39.6-49.0); Hemoglobin 14.1 g/dL (13.6-17.9); Lymphocytes % 24.5 % (15.3-44.8); MCH 31.4 pg (27.0-35.0); MCHC 35.4 g/dL (32.0-36.0); MCV 88.8 fL (80-100); MPV 7.3 fL (7.6-11.3); Monocytes % 8.2 % (3.3-12.3); Platelets 95 thou/uL (152-406); RBC Red Blood Cell Count 4.47 M/uL (4.33-5.43); Red Cell Distribution Width 14.7 % (12.1-15.2)
[2023-07-06 03:47] LABS: Anion Gap 4.6 mEq/L (5.0-15.0); Potassium 3.6 mEq/L (3.5-5.1); Thyroid Stimulating Hormone 1.76 uIU/mL (0.358-3.740)
[2023-07-06] MEDS: SOTALOL HCL 80 MG TAB PO ONE (06:40)
[2023-07-06] MEDS ORDERED: HOME MED 1 EA UNK (Potassium Chloride [Potassium Chloride] 20 MEQ Tablet.Er) PO SCH (09:00)
[2023-07-06] MEDS: TAMSULOSIN 0.4 MG SR CAP PO SCH (09:12)
--- NOTE | 2023-07-06 16:21 | P.DS ---
Admission Date: 07/05/23 Discharge Date: 07/06/23 Disposition: ROUTINE DISCHARGE Discharge Condition: GOOD Reason for Admission: Chest pain, A-fib with RVR Consultations: Cardiology-Dr. Pollard Brief History of Present Illness: 78-year-old male with history of atrial fibrillation on chronic anticoagulation, hypertension, hyperlipidemia presents emergency department with chief complaint of chest pain. He reports he was awoken around 3 AM with a pulsating chest pain radiating to both arms. Upon arrival to the emergency department patient was noted to be tachycardic with a rate in the 120s to 130s in A-fib. He was initially given IV Cardizem, metoprolol. Subsequently he was given his home dose of 80 mg of sotalol. He had mild improvement in symptoms, had initial high sensitive troponin was normal at 21.2 EKG without STEMI criteria does show atrial fibrillation. ED provider wishes to admit under observation for ACS rule out, atrial fibrillation with rapid ventricular response. Hospital Course: Assessment: Chronic atrial fibrillation with rapid ventricular response on chronic anticoagulation Chest pain rule out ACS Hypertension Hyperlipidemia Patient was admitted to the hospital for A-fib RVR and chest pain. His troponins were negative x 3, he was evaluated by cardiology who recommended increasing his sotalol from 80 mg twice daily to 120 mg twice daily. He had significant improvement in his rate with his atrial fibrillation after dose increase of sotalol, repeat EKG was obtained after initiation of higher dose so talol and QTc was not prolonged. Cardiology reports patient had a recent stress test which was normal. At discharge patient will be prescribed increased dose of sotalol 120 mg by mouth twice daily which has been sent to his pharmacy Continue other medications as prescribed including Eliquis Please follow-up with your primary care doctor in 1 to 2 weeks Please also follow-up with Dr. Pollard cardiology in 1 to 2 weeks Vital Signs/Physical Exam: Temp Pulse Resp BP Pulse Ox 98.1 F 73 15 115/88 96 07/06/23 12:00 07/06/23 12:00 07/06/23 12:00 07/06/23 12:07/06/23 12:00 General: Alert, In no apparent distress, Oriented x3 HEENT: Atraumatic, PERRLA Neck: Supple, JVD not distended Respiratory: Clear to auscultation bilaterally, Normal air movement Cardiovascular: Normal S1 S2, Irregular heart rate/rhythm (Afib rate controlled) Gastrointestinal: Normal bowel sounds, No tenderness Musculoskeletal: No tenderness Integumentary: No rashes Neurological: Normal speech, Normal tone Laboratory Data at Discharge: WBC 8.00 thou/uL (4.3-10.9) 07/06/23 02:16 Hgb 14.1 g/dL (13.6-17.9) 07/06/23 02:16 Hct 39.7 % (39.6-49.0) 07/06/23 02:16 Plt Count 95 thou/uL (152-406) L 07/06/23 02:16 PT 15.3 SECONDS (9.5-12.5) H 07/05/23 06:53 INR 1.40 07/05/23 06:53 Sodium 143 mEq/L (136-145) 07/06/23 02:16 Potassium 3.6 mEq/L (3.5-5.1) 07/06/23 02:16 BUN 28 mg/dL (7-18) H 07/06/23 02:16 Creatinine 1.37 mg/dL (0.70-1.30) H 07/06/23 02:16 Glucose 111 mg/dL (74-106) H 07/06/23 02:16 Magnesium 2.0 mg/dL (1.6-2.4) 07/06/23 02:16 Total Bilirubin 1.1 mg/dL (0.2-1.0) H 07/05/23 06:53 AST 26 U/L (15-37) 07/05/23 06:53 ALT 37 U/L (16-61) 07/05/23 06:53 Alkaline Phosphatase 72 U/L (45-117) 07/05/23 06:53 Home Medications: Atorvastatin Calcium [Lipitor*] 20 mg PO BEDTIME 01/25/17 Tamsulosin [Flomax*] 1 cap PO BID 03/20/18 Potassium Chloride 20 meq PO DAILY #30 tablet.er 09/28/18 Apixaban [Eliquis] 5 mg PO BID 07/05/23 Sotalol HCl [Sotalol] 120 mg PO DAILY #30 tab 07/06/23 New Medications: Sotalol HCl [Sotalol] 120 mg PO DAILY #30 tab Physician Discharge Instructions: Patient was admitted to the hospital for A-fib RVR and chest pain. His troponins were negative x 3, he was evaluated by cardiology who recommended increasing his sotalol from 80 mg twice daily to 120 mg twice daily. He had significant improvement in his rate with his atrial fibrillation after dose increase of sotalol, repeat EKG was obtained after initiation of higher dose sotalol and QTc was not prolonged. Cardiology reports patient had a recent stress test which was normal. At discharge patient will be prescribed increased dose of sotalol 120 mg by mouth twice daily which has been sent to his pharmacy Continue other medications as prescribed including Eliquis Please follow-up with your primary care doctor in 1 to 2 weeks Please also follow-up with Dr. Pollard cardiology in 1 to 2 weeks Diet: AHA Activity: Ad sharmin Followup: Rick Pollard MD [ACTIVE - CAN ADMIT] - 1 Week Graham Singh MD [Primary Care Provider] - 1-2 Weeks Time spent managing pt's care (in minutes): 30
[2023-07-06] MEDS: SOTALOL HCL 80 MG TAB PO SCH (17:19)
[2023-07-06 17:40] VITALS: BP 132/81; TEMP 98
[2023-07-06] MEDS ORDERED: ATORVASTATIN 20 MG TAB PO SCH (21:00)
== END 2023-07-06 20:33 | disposition home or self-care (01) ==
LOC: ER 06:36 → ERHOLD 08:15 → 2ND 11:57
PROVIDERS: ADMIT Hospitalist; ATTEND Hospitalist
DX: R07.9 Chest pain, unspecified (principal); I48.11 Longstanding persistent atrial fibrillation; I10 Essential (primary) hypertension; E78.5 Hyperlipidemia, unspecified; R79.89 Other specified abnormal findings of blood chemistry; Z79.01 Long term (current) use of anticoagulants
CPT/HCPCS: 85025 ×2; 80048 ×2; 36415; 83735 ×2; 85610; 80076; 84443; 84484 ×3; 84439; 83880; 71045; 96375; 96374; 99285; J7030 ×3; 93005; G0378; J2405

== ENCOUNTER 2023-07-09 16:20 | Inpatient (IN) | payer OTHER ==
--- OUTSIDE RECORDS SUMMARY | 2023-07-09 16:23 | XMS REPORT | Continuity of Care Document ---
Author Name Unknown Address [address] [place] [address] [facility] Address [address] [facility] [address] [place] [address] Care Team Providers Care Windows Migration Technician Name Role Phone TATE Attending Clinician Unavailable [...] (1) TABLET(S) BY MOUTH DAILY. [place] [facility] hydrochloro thiazide 25 mg tablet TAKE ONE (1) TABLET(S) BY MOUTH ONCE A DAY. hydrochloro thiazide 25 mg tablet TAKE ONE (1) TABLET(S) BY MOUTH ONCE A DAY. No hydrochlor othiazide 25 mg tablet TAKE ONE (1) TABLET(S) BY MOUTH ONCE A DAY. [place] [facility] neomycin-po lymyxin-hyd rocort [...] DROPS IN EACH EAR TWICE A DAY. [facility] potassium chloride ER 20 mEq tablet,exte nded release TAKE ONE (1) TABLET(S) BY MOUTH ONCE A DAY WITH FOOD. potassium chloride ER 20 mEq tablet,exte nded release TAKE ONE (1) TABLET(S) BY MOUTH ONCE A DAY WITH FOOD. No potassium chloride ER 20 mEq tablet,ext ended release TAKE ONE (1) TABLET(S) BY MOUTH ONCE A DAY WITH FOOD. [facility] sotalol 80 mg tablet TAKE ONE (1) TABLET(S) BY MOUTH TWICE A DAY. sotalol 80 mg tablet TAKE ONE (1) TABLET(S) BY MOUTH TWICE A DAY. No sotalol 80 mg tablet TAKE ONE (1) TABLET(S) BY MOUTH TWICE A DAY. [facility] atorvastati n 20 mg tablet TAKE ONE (1) TABLET(S) BY MOUTH ONCE A DAY. atorvastati n 20 mg tablet TAKE ONE (1) TABLET(S) BY MOUTH ONCE A DAY. No atorvastat in 20 mg tablet TAKE ONE (1) TABLET(S) BY MOUTH ONCE A DAY. [facility] azithromyci n 500 mg tablet azithromyci n 500 mg tablet No azithromyc in 500 mg tablet [facility] Encounters Start Date/Time End Date/Time Encounter Type Admission Type Attending [facility] Care Facility Care Department Encounter ID Source 2020-07-01 12:28:00 2020-07-01 12:28:00 Outpatient QUITA GARCIA [facility] [id number] [facility] 2020-07-01 00:00:00 2020-07-01 00:00:00 Yary Lay MD: [place] [address] , Ph. [facility] [id number] [facility] 2020-06-02 03:12:00 2020-06-02 03:12:00 Outpatient QUITA GARCIA [facility] [id number] [facility] 2020-06-02 00:00:00 2020-06-02 00:00:00 Yary Lay MD: [address] [place] [address] , Ph. [facility] [id number] [facility] 2020-06-01 11:40:00 2020-06-01 11:40:00 Outpatient QUITA CLOVISJodee [facility] [id number] [facility]
[2023-07-09] MEDS ORDERED: NA CHLORIDE 0.9% 500 ML ONE (16:45)
[2023-07-09 16:53] LABS: Absolute Eosinophils 0.1 K/uL (0-0.5); Absolute Lymphocytes (CBC) 2.1 K/uL (0.7-4.9); Absolute Monocytes 0.7 K/uL (0.1-1.3); Absolute Neutrophil 5.1 K/uL (1.8-8.0); Basophils % 0.6 % (0-1.3); Eosinophils % 0.9 % (0-4.4); Hemoglobin 15.3 g/dL (13.6-17.9); Lymphocytes % 26.4 % (15.3-44.8); MCH 30.7 pg (27.0-35.0); MCV 90.3 fL (80-100); MPV 7.5 fL (7.6-11.3); Monocytes % 8.5 % (3.3-12.3); Neutrophils % 63.6 % (41.7-73.7); Platelets 116 thou/uL (152-406); RBC Red Blood Cell Count 4.98 M/uL (4.33-5.43)
[2023-07-09 16:58] LABS: PT Prothrombin Time 16.2 SECONDS (9.5-12.5); Protime INR 1.49
[2023-07-09 17:13] LABS: Albumin 3.7 g/dL (3.4-5.0); Anion Gap 9.2 mEq/L (5.0-15.0); Bilirubin Direct 0.3 mg/dL (0-0.2); Bilirubin Indirect, Calculated 0.9 mg/dL (0.2-0.8); Bilirubin Total 1.2 mg/dL (0.2-1.0); Potassium 4.2 mEq/L (3.5-5.1); Protein, Total 7.6 g/dL (6.4-8.2)
[2023-07-09 17:14] LABS: Albumin/Globulin Ratio 0.9 (1.1-1.8); Globulin 3.9 g/dL (2.3-3.5); Troponin High Sensitivity 15.5 pg/mL (<58.9)
--- NOTE | 2023-07-09 17:43 | EDPHYS ---
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 17:16 The patient presents with a history of irregular heart beat, heart racing. Onset: The rn symptoms/episode began/occurred at an unknown time. Modifying factors: The symptoms are aggravated by nothing. The symptoms are alleviated by nothing. Severity of symptoms: At their worst the symptoms were moderate in the emergency department the symptoms have improved. The patient has experienced similar episodes in the past. Patient sent over by Dr. Pollard for A-fib with RVR and hypotension noted in clinic. Patient reports several days of feeling lightheaded and near syncope. Sotalol increased to 120 mg from 80 mg a few days ago and coincides with dizzy episodes. Denies any chest pain. Compliant with anticoagulation.. Historical: - Allergies: 16:38 No Known Allergies; as6 - PMHx: 16:38 Hyperlipidemia; High Cholesterol; Hypertension; Atrial fibrillation; as6 - PSHx: 16:38 Tonsillectomy; as6 - Immunization history:: Adult Immunizations up to date. - Infectious Disease History:: Denies. - Social history:: Smoking status: Patient denies any tobacco usage or history of. - Family history:: not pertinent. - Hospitalizations: : No recent hospitalization is reported. ROS: 17:16 Constitutional: Negative for fever, chills, and weight loss, Eyes: Negative for injury, rn pain, redness, and discharge, Neck: Negative for injury, pain, and swelling, Cardiovascular: Positive for palpitations Respiratory: Negative for shortness of breath, cough, wheezing, and pleuritic chest pain, Abdomen/GI: Negative for abdominal pain, nausea, vomiting, diarrhea, and constipation, MS/Extremity: Negative for injury and deformity, Skin: Negative for injury, rash, and discoloration, Neuro: Negative for headache, weakness, numbness, tingling, and seizure, Exam: 16:41 ECG was reviewed by the Attending Physician. rn 17:16 Constitutional: This is a well developed, well nourished patient who is awake, alert, rn and in no acute distress. Ambulatory to room without difficulty or assistance Cardiovascular: Tachycardic, irregular. No pulse deficits Respiratory: Speaking full sentences, unlabored. Neuro: Awake and alert, GCS 15. Normal gait. Vital Signs: 16:30 BP 123 / 94; Pulse 57; Resp 20; Pulse Ox 98% ; kn 16:38 BP 127 / 99; Pulse 65; Resp 16 S; Temp 98.1(O); Pulse Ox 98% on R/A; Weight 108.86 kg as6 (R); Height 6 ft. 3 in. (R); Pain 0/10; 17:30 BP 92 / 76; Pulse 103; Resp 20; Pulse Ox 97% ; kn 18:00 BP 141 / 100; Pulse 123; Resp 20; Pulse Ox 98% ; kn 18:30 BP 122 / 92; Pulse 102; Resp 20; Pulse Ox 97% ; kn 19:00 BP 126 / 90; Pulse 111; Resp 18 S; Pulse Ox 97% on R/A; jw7 19:30 BP 110 / 75; Pulse 105; Resp 19 S; Pulse Ox 98% on R/A; jw7 20:00 BP 113 / 83; Pulse 120; Resp 19 S; Pulse Ox 97% on R/A; jw7 20:30 BP 97 / 67; Pulse 128; Resp 18 S; Pulse Ox 98% on R/A; jw7 16:38 Body Mass Index 30.00 (108.86 kg, 190.5 cm) as6 16:38 Pain Scale: Adult as6 MDM: 16:27 Patient medically screened. rn 17:16 Differential diagnosis: arrythmia, dehydration, stress disorder. Differential rn diagnosis: Medication side effect, medication overdose. Data reviewed: vital signs, nurses notes. Consideration of Admission/Observation Patient was admitted/placed on observation. Escalation of care including admission/observation considered. Management of patient was discussed with the following: Tower Operator: Dr. Pollard and I discussed case, states not to worry too much about the rate control, once blood pressure up and plans to cardiovert tomorrow.. Care significantly affected by the following chronic conditions: Hypertension, Atrial fibrillation. Counseling: I had a detailed discussion with the patient and/or guardian regarding the historical points, exam findings, and any diagnostic results supporting the discharge/admit diagnosis, lab results, radiology results, the need for further work-up and treatment in the hospital. Response to treatment: the patient's symptoms have mildly improved after treatment. ED course: Blood pressure up to 120/88. Patient states feels better.. 07/08 16:28 Order name: Basic Metabolic Panel; Complete Time: 17:15 rn 07/08 16:28 Order name: CBC with Diff; Complete Time: 17:15 rn 07/08 16:28 Order name: LFT's; Complete Time: 17:15 rn 07/08 16:28 Order name: NT PRO-BNP; Complete Time: 17:15 rn 07/08 16:28 Order name: PT-INR; Complete Time: 17:15 rn 07/08 16:28 Order name: Troponin HS; Complete Time: 17:15 rn 07/08 19:07 Order name: Urinalysis w/ reflexes EDCT 07/08 19:07 Order name: CBC with Automated Diff EDCT 07/08 19:07 Order name: CBC with Automated Diff EDCT 07/08 19:07 Order name: Comprehensive Metabolic Panel EDCT 07/08 19:07 Order name: Comprehensive Metabolic Panel EDCT 07/08 16:28 Order name: XRAY Chest (1 view) rn 07/08 19:07 Order name: CONS Physician Consult EDCT 07/08 16:28 Order name: Cardiac monitoring; Complete Time: 16:44 rn 07/08 16:28 Order name: EKG - Nurse/Tech; Complete Time: 16:42 rn 07/08 16:28 Order name: IV Saline Lock; Complete Time: 16:50 rn 07/08 16:28 Order name: Labs collected and sent; Complete Time: 16:50 rn 07/08 16:28 Order name: O2 Per Protocol; Complete Time: 16:44 rn 07/08 16:28 Order name: O2 Sat Monitoring; Complete Time: 16:44 rn EC:41 Rate is 126 beats/min. Rhythm is irregularly irregular. QRS [place] is Normal. IA interval rn is normal. QRS interval is normal. QT interval is normal. No Q waves. T waves are Normal. No ST changes noted. Clinical impression: Atrial Fibrillation. Interpreted by me. Reviewed by me. Administered Medications: 16:48 Drug: NS 0.9% IV 500 ml IV at bolus once Route: IV; Rate: bolus; Site: left antecubital;db 17:40 Follow up: IV Status: Completed infusion; IV Intake: 500ml kn Disposition Summary: 07/09/23 17:42 Hospitalization Ordered Notes: Hospitalization Status: Inpatient Admission rn Provider: Sahil Cueto rn Location: Telemetry/[facility] (Inpatient) rn Condition: Stable rn Problem: an acute exacerbation rn Symptoms: have improved rn Bed/Room Type: Standard rn Room Assignment: 422(07/09/23 19:37) vc1 Diagnosis - Persistent atrial fibrillation - with RVR rn Forms: - Medication Reconciliation Form rn - SBAR form rn - Leadership Thank You Letter rn Signatures: Dispatcher [employer] EDJavier Spicer MD MD rn Slawson, Ashby RN RN as6 Yessica Ace RN RN vc1 Darshana Galloway RN RN LYLY Ingram RN Corrections: (The following items were deleted from the chart) 19:37 17:42 rn vc1
--- NOTE | 2023-07-09 17:43 | ER ---
Nurse's Notes [facility] Name: Ovidio Doty Jr Age: 78 yrs Sex: Male : 1945 Arrival Date: 07/09/2023 Time: 16:20 Bed 4 Private MD: Diagnosis: Persistent atrial fibrillation-with RVR Presentation: 07/08 16:38 Chief complaint: Patient states: pt sent by Dr. Pollard for a-fib. pt c/o as6 lightheadedness. Coronavirus screen: At this time, the client does not indicate any symptoms associated with coronavirus-19. Ebola Screen: No symptoms or risks identified at this time. Initial Sepsis Screen: Does the patient meet any 2 criteria? No. Patient's initial sepsis screen is negative. Does the patient have a suspected source of infection? No. Patient's initial sepsis screen is negative. Risk Assessment: Do you want to hurt yourself or someone else? Patient reports no desire to harm self or others. Onset of symptoms was July 09, 2023. 16:38 Acuity: TOI 2 as6 16:38 Method Of Arrival: Ambulatory as6 Triage Assessment: 16:45 General: Appears in no apparent distress. well groomed, well developed. Pain: Denies kn pain. Historical: - Allergies: 16:38 No Known Allergies; as6 - PMHx: 16:38 Hyperlipidemia; High Cholesterol; Hypertension; Atrial fibrillation; as6 - PSHx: 16:38 Tonsillectomy; as6 - Immunization history:: Adult Immunizations up to date. - Infectious Disease History:: Denies. - Social history:: Smoking status: Patient denies any tobacco usage or history of. - Family history:: not pertinent. - Hospitalizations: : No recent hospitalization is reported. Screenin:00 [facility] ED Fall Risk Assessment (Adult) History of falling in the last 3 months, db including since admission No falls in past 3 months (0 pts) Confusion or Disorientation No (0 pts) Intoxicated or Sedated No (0 pts) Impaired Gait No (0 pts) Mobility Assist Device Used No (0 pt) Altered Elimination No (0 pt) Score/Fall Risk Level 0 - 2 = Low Risk Oriented to surroundings, Maintained a safe environment. Abuse screen: Denies threats or abuse. Denies injuries from another. Nutritional screening: No deficits noted. Tuberculosis screening: No symptoms or risk factors identified. Assessment: 16:47 Reassessment: Patient appears in no apparent distress at this time. Patient is alert, kn oriented x 3, equal unlabored respirations, skin warm/dry/pink. Patient denies pain at this time. pt ambulatory to room, c/c: "low bp, dizziness" hx of afib, +blood thinners on figueroa. pt is AAOx4, in no acute distress, placed on monitor, bp cuff, pulse ox, new orders noted and implemented, will continue to monitor pt. MD at bedside.. 19:20 General: Appears in no apparent distress. comfortable, Behavior is calm, cooperative. jw7 19:20 Pain: Denies pain. Neuro: Level of Consciousness is awake, alert, obeys commands, jw7 Oriented to person, place, time, situation. Cardiovascular: Capillary refill < 3 seconds Clubbing of nail beds is absent JVD is absent Patient's skin is warm and dry. Rhythm is atrial fibrillation with rapid ventricular response. Respiratory: Airway is patent Trachea midline Respiratory effort is even, unlabored, Respiratory pattern is regular, symmetrical, Breath sounds are clear bilaterally. GI: Abdomen is flat, non-distended, Bowel sounds present X 4 quads. Abd is soft and non tender X 4 quads. : No deficits noted. No signs and/or symptoms were reported regarding the genitourinary system. EENT: No deficits noted. No signs and/or symptoms were reported regarding the EENT system. Derm: Skin is intact, is healthy with good turgor, Skin is dry, Skin is normal, Skin temperature is warm. Musculoskeletal: Circulation, motion, and sensation intact. Range of motion: intact in all extremities. 20:20 Reassessment: Patient appears in no apparent distress at this time. No changes from jw7 previously documented assessment. Patient and/or family updated on plan of care and expected duration. Pain level reassessed. Patient is alert, oriented x 3, equal unlabored respirations, skin warm/dry/pink. Vital Signs: 16:30 BP 123 / 94; Pulse 57; Resp 20; Pulse Ox 98% ; kn 16:38 BP 127 / 99; Pulse 65; Resp 16 S; Temp 98.1(O); Pulse Ox 98% on R/A; Weight 108.86 kg as6 (R); Height 6 ft. 3 in. (R); Pain 0/10; 17:30 BP 92 / 76; Pulse 103; Resp 20; Pulse Ox 97% ; kn 18:00 BP 141 / 100; Pulse 123; Resp 20; Pulse Ox 98% ; kn 18:30 BP 122 / 92; Pulse 102; Resp 20; Pulse Ox 97% ; kn 19:00 BP 126 / 90; Pulse 111; Resp 18 S; Pulse Ox 97% on R/A; jw7 19:30 BP 110 / 75; Pulse 105; Resp 19 S; Pulse Ox 98% on R/A; jw7 20:00 BP 113 / 83; Pulse 120; Resp 19 S; Pulse Ox 97% on R/A; jw7 20:30 BP 97 / 67; Pulse 128; Resp 18 S; Pulse Ox 98% on R/A; jw7 16:38 Body Mass Index 30.00 (108.86 kg, 190.5 cm) as6 16:38 Pain Scale: Adult as6 ED Course: 16:26 Patient arrived in ED. mg5 16:27 Javier Dumont MD is Attending Physician. rn 16:29 Darshana Galloway, DARRYL is Primary Nurse. db 16:36 EKG completed in triage. Results shown to MD. kn 16:37 Arm band placed on. as6 16:37 Inserted saline lock: 20 gauge in left antecubital area, using aseptic technique. kn 16:41 Triage completed. as6 16:50 Basic Metabolic Panel Sent. kn 16:50 CBC with Diff Sent. kn 16:50 LFT's Sent. kn 16:50 NT PRO-BNP Sent. kn 16:50 PT-INR Sent. kn 16:50 Troponin HS Sent. kn 16:51 Basic Metabolic Panel Sent. kn 16:52 Initial lab(s) drawn, sent to lab. kn 17:06 XRAY Chest (1 view) In Process Unspecified. EDMS 17:42 Sahil Cueto MD is Hospitalizing Provider. rn 18:00 Patient has correct armband on for positive identification. Bed in low position. Call db light in reach. Side rails up X 1. Provided Education on: AFIB AND ADMISSION. Client placed on continuous cardiac and pulse oximetry monitoring. NIBP monitoring applied. monitoring analyst on. Pulse ox on. 19:10 Report given to APARTMENT LEASING AGENT RN. db 20:16 No provider procedures requiring assistance completed. Patient admitted, IV remains in jw7 place. Administered Medications: 16:48 Drug: NS 0.9% IV 500 ml IV at bolus once Route: IV; Rate: bolus; Site: left antecubital;db 17:40 Follow up: IV Status: Completed infusion; IV Intake: 500ml ebony Medication: 20:17 VIS not applicable for this client. jw7 Intake: 17:40 IV: 500ml; Total: 500ml. kn Outcome: 17:42 Decision to Hospitalize by Provider. rn 20:16 Admitted to Tele accompanied by tech, via wheelchair, room 422, on monitor, Report jw7 called to Emelyn 20:16 Condition: stable 20:16 Instructed on the need for admit, Demonstrated understanding of instructions, 21:00 Patient left the ED. vc1 Signatures: Dispatcher [employer] EDJavier Spicer MD MD rn Slawson, Ashby, RN RN as6 Yessica Ace RN RN vc1 Alberta Julio RN RN jw7 Darshana Galloway RN RN Juanita Tay mg5 LYLY FLORES RN RN kn
--- NOTE | 2023-07-09 18:09 | RAD REPORT ---
EXAM DESCRIPTION: RADChest Single View07/09/2023 5:04 pm CLINICAL HISTORY: PALPITATIONS COMPARISON: Chest Single View dated 07/05/2023; Chest Single View dated 09/27/2018; Chest Single View d ated 03/20/2018 TECHNIQUE: Portable AP view of the chest. FINDINGS: The lungs are clear. No pneumothorax or effusion. The cardiomediastinal contours are unre markable. IMPRESSION: No acute cardiopulmonary process.
[2023-07-09] MEDS ORDERED: ACETAMINOPHEN 325 MG TABLET PO PRN (19:03)
[2023-07-09] MEDS ORDERED: ONDANSETRON 4 MG/2 ML VIAL IV PRN (19:03)
--- NOTE | 2023-07-09 19:07 | P.HP ---
Certification for Inpatient Patient admitted to: Inpatient With expected LOS: >2 Midnights Practitioner: I am a practitioner with admitting privileges, knowledge of patient current condition, hospital course, and medical plan of care. Services: Services provided to patient in accordance with Admission requirements found in Title 42 Section 412.3 of the Code of Federal Regulations Patient History Date of Service: 07/09/23 Reason for admission: Afib W RVR History of Present Illness: 78 yrs old Male with a past medical history of hyperlipidemia, hypertension, atrial fibrillation, who started having palpitation and was seen by tie loader Dr. Pollard and was sent sent over to ER for possible cardioversion. Patient started having irregular heartbeat with racing of the heart. Denies any chest pain. No fever or chills. Has similar episodes in the past. She also feeling lightheadedness. And near syncope episodes cardiology increased sotalol to 120 mg from 80 mg but still continues to have dizzy spells. Patient is on anticoagulation. Patient was assessed in the ER and was admitted for further management of A-fib with RVR and for possible cardioversion in a.m. Allergies No Known Allergies Allergy (Verified 07/09/23 21:56) Home medications list reviewed: Yes Home Medications: Tamsulosin [Flomax*] 1 cap PO DAILY 03/20/18 Apixaban [Eliquis] 5 mg PO BID 07/05/23 Atorvastatin Calcium [Lipitor*] 1 tab PO DAILY 07/09/23 Sotalol HCl [Sotalol] 120 mg PO BID 07/09/23 - Past Medical/Surgical History Diabetic: No Past Medical History: Reviewed- Non-Contributory -: Hypertension -: Hyperlipidemia -: BPH -: Atrial fibrillation Past Surgical History: Reviewed- Non-Contributory -: Cataracts Psychosocial/ Personal History: Patient is . He has no children. 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 - Family History Family History: Reviewed- Non-Contributory - Family History Father -: Cancer Mother -: Stroke - Social History Smoking Status: Never smoker Alcohol use: No CD- Drugs: No Caffeine use: Yes Review of Systems 10-point ROS is otherwise unremarkable Physical Examination - Vital Signs Temperature: 98.4 F Blood Pressure: 112/68 Pulse: 112 Respirations: 18 Pulse Ox (%): 96 - Physical Exam General: Alert, Oriented x3, Cooperative, Mild distress HEENT: Atraumatic, Normocephalic Neck: Supple, No Thyromegaly Respiratory: Clear to auscultation bilaterally, Normal air movement Cardiovascular: Irregular heart rate/rhythm, Abnormal S1 S2 Capillary refill: <2 Seconds Gastrointestinal: Soft and benign, W/out hepatosplenomegaly Musculoskeletal: No clubbing, No swelling Integumentary: No rashes, No breakdown Neurological: Normal gait, Normal strength at 5/5 x4 extr, Cranial nerves 3-12 intact, Normal reflexes 2+, Normal affect Lymphatics: No axilla or inguinal lymphadenopathy - Studies Laboratory Data (last 24 hrs) 07/09/23 07/09/23 07/09/23 16:35 16:35 16:35 WBC 8.00 Hgb 15.3 Hct 45.0 Plt Count 116 L PT 16.2 H INR 1.49 Sodium 139 Potassium 4.2 BUN 31 H Creatinine 1.71 H Glucose 99 Total Bilirubin 1.2 H AST 17 ALT 34 Alkaline Phosphatase 75 Assessment and Plan - Problems (Diagnosis) (1) Atrial fibrillation with RVR Current Visit: Yes Status: Chronic Plan: A-fib with RVR noted Continue sotalol Monitor closely under telemetry Cardiology consult Possible cardioversion in a.m. Will keep n.p.o. past midnight (2) Hypertension Onset Date: 03/21/18 Current Visit: No Status: Chronic Plan: Continue home medications Titrate as needed Metoprolol IV as needed (3) Hyperlipidemia Onset Date: 03/21/18 Current Visit: No Status: Chronic Plan: Continue statin (4) BPH (benign prostatic hyperplasia) Onset Date: 03/21/18 Current Visit: No Status: Chronic Plan: Continue home medications - Advance Directives Does patient have a Living Will: No Does patient have a Durable POA for Healthcare: No - Code Status/Comfort Care Code Status: Full Code Time Spent Managing Pts Care (In Minutes): 48
[2023-07-09 22:00] VITALS: BMI 29.2
[2023-07-09] MEDS ORDERED: APIXABAN 2.5 MG TABLET PO SCH (22:47)
[2023-07-09] MEDS: SOTALOL HCL 80 MG TAB PO ONE (22:58)
[2023-07-09] MEDS: APIXABAN 5 MG TABLET PO SCH (23:01)
[2023-07-10 04:45] LABS: Absolute Eosinophils 0.1 K/uL (0-0.5); Absolute Lymphocytes (CBC) 2.1 K/uL (0.7-4.9); Absolute Monocytes 0.7 K/uL (0.1-1.3); Absolute Neutrophil 4.5 K/uL (1.8-8.0); Basophils % 0.5 % (0-1.3); Eosinophils % 1.4 % (0-4.4); Hematocrit 39.6 % (39.6-49.0); Hemoglobin 13.9 g/dL (13.6-17.9); Lymphocytes % 28.6 % (15.3-44.8); MCH 31.4 pg (27.0-35.0); MCHC 35.1 g/dL (32.0-36.0); MCV 89.3 fL (80-100); MPV 7.4 fL (7.6-11.3); Monocytes % 9.1 % (3.3-12.3); Neutrophils % 60.4 % (41.7-73.7); Nucleated Red Blood Cells % 0.1 % (0-0); Platelets 105 thou/uL (152-406); RBC Red Blood Cell Count 4.44 M/uL (4.33-5.43); Red Cell Distribution Width 14.7 % (12.1-15.2)
[2023-07-10 05:00] LABS: Albumin 3.1 g/dL (3.4-5.0); Albumin/Globulin Ratio 0.9 (1.1-1.8); Anion Gap 7.8 mEq/L (5.0-15.0); Globulin 3.3 g/dL (2.3-3.5); Potassium 3.8 mEq/L (3.5-5.1); Protein, Total 6.4 g/dL (6.4-8.2)
--- NOTE | 2023-07-10 08:15 | P.PN ---
Subjective Date of Service: 07/11/23 Chief Complaint: Afib W RVR Admitted with palpitations for possible cardioversion by Dr. Pollard post cardioversion patient had soft blood pressure, was treated for gentle hydration plan to discharge in the a.m. Reports feeling lightheaded, near syncopal episodes. Reports medication just cardiology increased sotalol to 120 mg from 80 mg but still continues to have dizzy spells. General: Alert, Oriented x3, Cooperative, HEENT: Atraumatic, Normocephalic Neck: Supple, No Thyromegaly Respiratory: Clear to auscultation bilaterally, Normal air movement Cardiovascular: Irregular heart rate/rhythm, Abnormal S1 S2 Capillary refill: <2 Seconds Gastrointestinal: Soft and benign, W/out hepatosplenomegaly Musculoskeletal: No clubbing, No swelling Integumentary: No rashes, No breakdown Neurological: Normal gait, Normal strength at 5/5 x4 extr, Cranial nerves 3-12 intact, Normal reflexes 2+, Normal affect Lymphatics: No axilla or inguinal lymphadenopathy Review of Systems Per HPI Physical Examination - Vital Signs Temperature: 98.1 F Blood Pressure: 113/83 Pulse: 120 Respirations: 19 Pulse Ox (%): 95 - Studies Laboratory Data (last 24 hrs) 07/09/23 07/09/23 07/09/23 16:35 16:35 16:35 WBC 8.00 Hgb 15.3 Hct 45.0 Plt Count 116 L PT 16.2 H INR 1.49 Sodium 139 Potassium 4.2 BUN 31 H Creatinine 1.71 H Glucose 99 Total Bilirubin 1.2 H AST 17 ALT 34 Alkaline Phosphatase 75 Assessment And Plan - Plan Assessment and Plan (1) Atrial fibrillation with RVR Current Visit: Yes Status: Chronic Plan: A-fib with RVR noted Continue sotalol Monitor closely under telemetry Cardiology consult Possible cardioversion in a.m. Will keep n.p.o. past midnight, Plan for cardioversion today for 07/09 (2) Hypertension Onset Date: 03/21/18 Current Visit: No Status: Chronic Plan: Continue home medications Titrate as needed Metoprolol IV as needed (3) Hyperlipidemia Onset Date: 03/21/18 Current Visit: No Status: Chronic Plan: Continue statin (4) BPH (benign prostatic hyperplasia) Onset Date: 03/21/18 Current Visit: No Status: Chronic Plan: Continue home medications - Advance Directives Does patient have a Living Will: No Does patient have a Durable POA for Healthcare: No Discharge Plan: Home Critical Care: No Time Spent Managing PTS Care (In Minutes): 35
[2023-07-10] MEDS: ATORVASTATIN 20 MG TAB PO SCH (08:22)
[2023-07-10] MEDS: SOTALOL HCL 80 MG TAB PO SCH (08:22)
[2023-07-10] MEDS: TAMSULOSIN 0.4 MG SR CAP PO SCH (08:22)
[2023-07-10] MEDS ORDERED: SOTALOL HCL 80 MG TAB PO SCH (09:00)
[2023-07-10] MEDS ORDERED: APIXABAN 5 MG TABLET PO SCH (09:00)
[2023-07-10] MEDS: POTASSIUM 25 MEQ EFFERV TAB PO ONE (12:00)
[2023-07-10] MEDS ORDERED: METOPROLOL TARTRATE 5 MG/5 ML INJ IV ONE (13:46)
[2023-07-10] MEDS ORDERED: ATROPINE SULF 1 MG/10 ML SYR IV ONE (13:46)
[2023-07-10] MEDS: NA CHLORIDE 0.9% 500 ML ONE (13:52)
[2023-07-10] MEDS ORDERED: LIDOCAINE 1% MPF 5 ML VIAL ONE (14:12)
[2023-07-10] MEDS ORDERED: propofoL 200 MG/20 ML VIAL IV ONE (14:12)
--- NOTE | 2023-07-10 15:12 | P.DS ---
Admission Date: 07/09/23 Discharge Date: 07/11/23 Disposition: ROUTINE DISCHARGE Discharge Condition: GOOD Reason for Admission: Afib W RVR Brief History of Present Illness: 78 yrs old Male with a past medical history of hyperlipidemia, hypertension, atrial fibrillation, who started having palpitation and was seen by lumber material handler Dr. Pollard and was sent sent over to ER for possible cardioversion. Patient started having irregular heartbeat with racing of the heart. Denies any chest pain. No fever or chills. Has similar episodes in the past. She also feeling lightheadedness. And near syncope episodes cardiology increased sotalol to 120 mg from 80 mg but still continues to have dizzy spells. Patient is on anticoagulation. Patient was assessed in the ER and was admitted for further management of A-fib with RVR and for possible cardioversion in a.m. - Physical Exam General: Alert, Oriented x3, Cooperative, HEENT: Atraumatic, Normocephalic Neck: Supple, No Thyromegaly Respiratory: Clear to auscultation bilaterally, Normal air movement Cardiovascular: sinus jovita rate 50's Capillary refill: <2 Seconds Gastrointestinal: Soft and benign, W/out hepatosplenomegaly Musculoskeletal: No clubbing, No swelling Integumentary: No rashes, No breakdown Neurological: Normal gait, Normal strength at 5/5 x4 extr, Cranial nerves 3-12 intact, Normal reflexes 2+, Normal affect Lymphatics: No axilla or inguinal lymphadenopathy Hospital Course: 78 year-old male patient presented with dizziness, near syncopal episode. Was evaluated by cardiology for A-fib RVR on sotalol. N.p.o. for possible cardioversion overnight. Condition improved with Patient tolerating diet, stable for discharge to home with follow-up appointment with primary care physician. Follow-up with cardiology after discharge PROBLEM: Near syncopal episode-improved Dizziness-improved, A-fib RVR-converted to sinus bradycardia Cardioversion completed 07/[address] Pollard Sinus bradycardia Follow-up with cardiology after discharge Medication changes per Cardiology Continue home medicines as previously prescribed GOAL: Clear understanding of disease process INSTRUCTIONS: Physician Discharge Instructions: -Follow-up with PCP in 1 to 2 weeks -Please call Dr. Lorenzo at [phone] if any questions regarding hospital stay -Please call nursing station at [phone] if any nursing or medication questions -Return to the emergency room if symptoms worsen Diet: ADA, low sodium Activity: Fall precautions Vital Signs/Physical Exam: Temp Pulse Resp BP Pulse Ox 97.2 F 51 14 85/56 L 95 07/10/23 14:37 07/10/23 14:55 07/10/23 14:55 07/10/23 14:55 07/10/23 08:14 Laboratory Data at Discharge: WBC 7.40 thou/uL (4.3-10.9) 07/10/23 04:10 Hgb 13.9 g/dL (13.6-17.9) D 07/10/23 04:10 Hct 39.6 % (39.6-49.0) 07/10/23 04:10 Plt Count 105 thou/uL (152-406) L 07/10/23 04:10 PT 16.2 SECONDS (9.5-12.5) H 07/09/23 16:35 INR 1.49 07/09/23 16:35 Sodium 141 mEq/L (136-145) 07/10/23 04:10 Potassium 3.8 mEq/L (3.5-5.1) 07/10/23 04:10 BUN 30 mg/dL (7-18) H 07/10/23 04:10 Creatinine 1.39 mg/dL (0.70-1.30) H 07/10/23 04:10 Glucose 90 mg/dL (74-106) 07/10/23 04:10 Total Bilirubin 1.0 mg/dL (0.2-1.0) 07/10/23 04:10 AST 15 U/L (15-37) 07/10/23 04:10 ALT 27 U/L (16-61) 07/10/23 04:10 Alkaline Phosphatase 66 U/L (45-117) 07/10/23 04:10 Home Medications: Tamsulosin [Flomax*] 1 cap PO DAILY 03/20/18 Apixaban [Eliquis] 5 mg PO BID 07/05/23 Atorvastatin Calcium [Lipitor*] 1 tab PO DAILY 07/09/23 Sotalol HCl [Betapace AF] 120 mg PO 0800 #30 tab 07/11/23 Sotalol HCl [Betapace*] 80 mg PO 2000 #30 tab 07/11/23 New Medications: Sotalol HCl [Betapace AF] 120 mg PO 0800 #30 tab Sotalol HCl [Betapace*] 80 mg PO 2000 #30 tab Physician Discharge Instructions: -DC IV and DC home -Follow-up with PCP in 1 to 2 weeks -Follow-up with Cardiology in 1 to 2 weeks -Please call Dr. Lorenzo at [phone] if any questions regarding hospital stay -Please call nursing station at [phone] if any nursing or medication questions -Return to the emergency room if symptoms worsen Spoke to patient about taking his sotalol 120 mg in the morning and 80 mg at night. I gave patient a prescription and printed it and gave it to him. Diet: AHA Activity: Fall precautions Followup: STEPHANY HAMMOND [Primary Care Provider] - Rick Pollard MD [ACTIVE - CAN ADMIT] - Time spent managing pt's care (in minutes): 55
--- NOTE | 2023-07-10 20:31 | OP ---
Date of Procedure: 07/10/2023 Surgeon: ROMAN MARTINEZ Procedures Performed: 1.Transesophageal echocardiogram. 2.Electrical cardioversion of atrial fibrillation to normal sinus rhythm. Indication: Atrial fibrillation with rapid ventricular response. Description Of Procedure: After risks, benefits, alternatives were explained, patient agreed to proc edure and signed informed consent. Patient was brought into the OR and after appropriate time-out, p ropofol was administered by Anesthesia and then ROSCOE probe was inserted. There was no left atrial silvia endage thrombus. ROSCOE probe was removed and then synchronized 200 joule electrical cardioversion perf ormed failed to convert to sinus rhythm, then upgraded to 300 joules and synchronized electrical card ioversion was performed, successfully converting the rhythm into normal sinus rhythm. The patient wa s sent to recovery in stable condition. Conclusion: Successful ROSCOE-guided electrical cardioversion. SR/MODL Voice ID: [id number] Report ID: [id number]
--- NOTE | 2023-07-10 21:02 | CON ---
Date of Consultation: 07/10/2023 Reason For Consultation: Atrial fibrillation with rapid ventricular response. History Of Present Illness: 78-year-old male, history of atrial fibrillation, hypertension, dyslipid emia, sent from my office due to severe hypotension and atrial fibrillation with rapid ventricular re sponse. He was also dehydrated and dizzy, very symptomatic, sent to the emergency room, was found to be in acute renal failure. After fluid management, he felt better and heart rate has improved. Past Medical History: As outlined above in the HPI. Medications: Refer to reconciliation sheet for detailed list. Allergies: NO KNOWN DRUG ALLERGIES. Family History: No premature coronary artery disease or cancer. Social History: He does not smoke or drink. Does not use any drugs. Review of Systems: All systems reviewed and they were negative except as mentioned in the HPI. Physical Examination: Vital Signs: Reviewed. Head and Neck: Pupils are equal, reactive to light. Intact eye movements. No JVD. No cervical lym phadenopathy. Neck is supple. Thyroid is not enlarged. Lungs: Clear to auscultation bilaterally. No rhonchi, wheezing, or crackles. No accessory muscle u se. Heart: Irregularly irregular. No extra sounds. Abdomen: Soft, nontender. Bowel sounds positive. No organomegaly. No masses or hernia. No rigidi ty or rebound. Extremities: No edema, clubbing, or cyanosis. Intact pulses. Skin: No rash. No nodule. Neurologic: Alert, awake, oriented x3. No acute focal deficits appreciated. Investigations: BUN 31, creatinine 1.7, and NT-proBNP was 3057. Hemoglobin was 13.9. Assessment And Recommendations: 1.Atrial fibrillation with rapid ventricular response. Sotalol was increased to 120 mg twice a day and continue Eliquis 5 mg twice a day. We will plan for ROSCOE-guided cardioversion. 2.Dyslipidemia. Continue Lipitor. 3.Acute renal failure due to dehydration. Discontinue hydrochlorothiazide and give him IV fluids wi th normal saline at 50 cc/hour. Reassess labs in the morning. 4.Hypertension. Blood pressure is running on the low side due to dehydration. Plan as above. SR/MODL Voice ID: [id number] Report ID: [id number]
[2023-07-10] MEDS: SOTALOL HCL 80 MG TAB PO ONE (21:04)
[2023-07-11 04:38] LABS: Anion Gap 7.6 mEq/L (5.0-15.0); Potassium 3.6 mEq/L (3.5-5.1)
[2023-07-11 06:56] VITALS: TEMP 98.1
--- NOTE | 2023-07-11 07:20 | TEE ---
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 TRANSESOPHAGEAL ECHOCARDIOGRAM PROBE INSERTED, NO DIFFICULTY 2. NO LEFT ATRIAL APPENDAGE THOMBUS IS SEEN 3. NORMAL LEFT VENTRICULAR EJECTION FRACTION 55-60% TECHNOLOGIST: RISA MCGRATH
[2023-07-11 08:31] VITALS: BP 149/88
[2023-07-11] MEDS: POTASSIUM 25 MEQ EFFERV TAB PO ONE (08:31)
[2023-07-11] MEDS: SOTALOL HCL 80 MG TAB PO ONE (09:40)
[2023-07-11 10:13] VITALS: O2SAT 98
--- NOTE | 2023-07-12 22:22 | PN ---
Date of Progress Note: 07/11/2023 Subjective: Seen by bedside. Doing well post cardioversion. Continued to be in sinus bradycardia. Review of Systems: There is no chest pain, shortness of breath, abdominal pain, and cough. No nausea, vomiting, diarrhe a. All other systems were reviewed, they were negative. Physical Examination: Vital Signs: Reviewed. Head and Neck: Pupils are equal, reactive to light. Intact eye movements. No JVD. No cervical lym phadenopathy. Neck: Supple. Thyroid is not enlarged. Lungs: Clear to auscultation bilaterally. No rhonchi, rales, or crackles. No accessory muscle use. Heart: Regular rate and rhythm. No extra sounds. Abdomen: Soft, nontender. Bowel sounds positive. No organomegaly. No masses or hernia. No rigidi ty or rebound. Extremities: No clubbing, cyanosis. Intact pulses. Skin: No rash. No nodule. Neurologic: Alert, awake, oriented x3. No acute focal deficits appreciated. Lymph nodes: No cervical lymphadenopathy. Investigations: BUN is 30, creatinine 1.42. Assessment/recommendation: 1.Atrial fibrillation, converted to sinus rhythm successfully. Continue sotalol and Eliquis. Delmiso w up with me early next week in the office. 2.Acute renal failure due to dehydration. This is resolved. Discontinue hydrochlorothiazide and as ked him not to take it anymore. 3.Hypertension. Blood pressure is controlled. Continue current management. I will check his basic metabolic panel next week. If his creatinine goes up, then we will discontinue sotalol and switch it to another agent. SR/MODL Voice ID: [id number] Report ID: [id number]
== END 2023-07-11 10:27 | disposition home or self-care (01) | DRG 310 ==
LOC: ER 16:20 → ERHOLD 19:03 → 4TH 20:14
PROVIDERS: ADMIT Family Medicine; ATTEND Hospitalist
PROC: B24BZZ4 Ultrasonography of Heart with Aorta, Transesophageal (ICD-10-PCS; principal; 2023-07-10)
PROC: 5A2204Z Restoration of Cardiac Rhythm, Single (ICD-10-PCS; 2023-07-10)
DX: I48.19 Other persistent atrial fibrillation (principal); I10 Essential (primary) hypertension; E78.00 Pure hypercholesterolemia, unspecified; N40.0 Benign prostatic hyperplasia without lower urinary tract symptoms; Z79.01 Long term (current) use of anticoagulants; Z79.899 Other long term (current) drug therapy
CPT/HCPCS: 36415; 71045; 80048; 80053; 80076; 83735; 83880; 84439; 84443; 84484; 85025; 85610; 92960; 93005; 93312; 94760; 96360; 96374; 96375; 99285; G0378; J0461; J2001; J2405; J2704; J7030; J7040

== ENCOUNTER 2023-09-20 17:47 | Emergency (ER) | payer OTHER ==
--- OUTSIDE RECORDS SUMMARY | 2023-09-20 17:49 | XMS REPORT | Continuity of Care Document ---
Author Name Unknown Address [address] [place] [phone] [facility] Address [address] [facility] [address] [place] [address] Care Team Providers Care Land Economist Name Role Phone TATE Attending Clinician Unavailable [...] (1) TABLET(S) BY MOUTH DAILY. [place] [facility] hydrochloro thiazide 25 mg tablet TAKE ONE (1) TABLET(S) BY MOUTH ONCE A DAY. hydrochloro thiazide 25 mg tablet TAKE ONE (1) TABLET(S) BY MOUTH ONCE A DAY. No hydrochlor othiazide 25 mg tablet TAKE ONE (1) TABLET(S) BY MOUTH ONCE A DAY. [place] [facility] neomycin-po lymyxin-hyd rocort [...] DROPS IN EACH EAR TWICE A DAY. [facility] potassium chloride ER 20 mEq tablet,exte nded release TAKE ONE (1) TABLET(S) BY MOUTH ONCE A DAY WITH FOOD. potassium chloride ER 20 mEq tablet,exte nded release TAKE ONE (1) TABLET(S) BY MOUTH ONCE A DAY WITH FOOD. No potassium chloride ER 20 mEq tablet,ext ended release TAKE ONE (1) TABLET(S) BY MOUTH ONCE A DAY WITH FOOD. [facility] sotalol 80 mg tablet TAKE ONE (1) TABLET(S) BY MOUTH TWICE A DAY. sotalol 80 mg tablet TAKE ONE (1) TABLET(S) BY MOUTH TWICE A DAY. No sotalol 80 mg tablet TAKE ONE (1) TABLET(S) BY MOUTH TWICE A DAY. [facility] atorvastati n 20 mg tablet TAKE ONE (1) TABLET(S) BY MOUTH ONCE A DAY. atorvastati n 20 mg tablet TAKE ONE (1) TABLET(S) BY MOUTH ONCE A DAY. No atorvastat in 20 mg tablet TAKE ONE (1) TABLET(S) BY MOUTH ONCE A DAY. [facility] azithromyci n 500 mg tablet azithromyci n 500 mg tablet No azithromyc in 500 mg tablet [facility] Encounters Start Date/Time End Date/Time Encounter Type Admission Type Attending [facility] Care Facility Care Department Encounter ID Source 2020-07-01 12:28:00 2020-07-01 12:28:00 Outpatient QUITA GARCIA [facility] [id number] [facility] 2020-07-01 00:00:00 2020-07-01 00:00:00 Yary Lay [place]: [place] [address] , Ph. [facility] [id number] [facility] 2020-06-02 03:12:00 2020-06-02 03:12:00 Outpatient QUITA GARCIA [facility] [id number] [facility] 2020-06-02 00:00:00 2020-06-02 00:00:00 Yary Lay MD: [address] [place] [address] , Ph. [facility] [id number] [facility] 2020-06-01 11:40:00 2020-06-01 11:40:00 Outpatient QUITA CLOVISJodee [facility] [id number] [facility]
[2023-09-20] MEDS ORDERED: HYDRALAZINE HCL 20 MG/ML VIAL ONE (18:39)
[2023-09-20 19:06] LABS: Absolute Lymphocytes (CBC) 1.4 K/uL (0.7-4.9); Absolute Monocytes 0.8 K/uL (0.1-1.3); Absolute Neutrophil 5.7 K/uL (1.8-8.0); Basophils % 0.1 % (0-1.3); Hematocrit 41.6 % (39.6-49.0); Hemoglobin 14.2 g/dL (13.6-17.9); Lymphocytes % 18.1 % (15.3-44.8); MCH 30.6 pg (27.0-35.0); MCHC 34.1 g/dL (32.0-36.0); MCV 89.9 fL (80-100); MPV 7.7 fL (7.6-11.3); Neutrophils % 71.8 % (41.7-73.7); Nucleated Red Blood Cells % 0.1 % (0-0); Platelets 105 thou/uL (152-406); RBC Red Blood Cell Count 4.63 M/uL (4.33-5.43); Red Cell Distribution Width 14.4 % (12.1-15.2)
[2023-09-20 19:16] LABS: Albumin/Globulin Ratio 1.3 (1.1-1.8); Anion Gap 7.1 mEq/L (5.0-15.0); Bilirubin Direct 0.4 mg/dL (0-0.2); Bilirubin Indirect, Calculated 1.3 mg/dL (0.2-0.8); Bilirubin Total 1.7 mg/dL (0.2-1.0); Globulin 3.1 g/dL (2.3-3.5); Magnesium 2.5 mg/dL (1.6-2.4); Potassium 4.1 mEq/L (3.5-5.1); Protein, Total 7.1 g/dL (6.4-8.2); Troponin High Sensitivity 16.2 pg/mL (<58.9)
--- NOTE | 2023-09-20 19:24 | RAD REPORT ---
EXAM DESCRIPTION: CT - Head Brain Wo Cont - 09/20/2023 7:06 pm CLINICAL HISTORY: Headache COMPARISON: 2019 TECHNIQUE: Computed axial tomography of the head was obtained. IV contrast was not requested. All CT scans are performed using dose optimization technique as appropriate and may include automated exposure control or mA/KV adjustment according to patient size. FINDINGS: An intracranial bleed is not seen The ventricles are normal in caliber No extra-axial fluid collection is noted. Mild low-density areas within periventricular, deep and subcortical white matter likely represent is chemic changes secondary to small vessel disease. Fluid within the sinuses/ mastoids is not seen. IMPRESSION: No acute intracranial abnormality is seen If patient's symptoms persist MRI of the brain would be recommended
--- NOTE | 2023-09-20 19:33 | RAD REPORT ---
EXAM DESCRIPTION: Cesar Single View09/20/2023 7:25 pm CLINICAL HISTORY: Hypertension COMPARISON: June 2023 FINDINGS: The lungs appear clear of acute infiltrate. The heart is mildly enlarged IMPRESSION: No acute abnormalities displayed
--- NOTE | 2023-09-20 19:47 | ER ---
Nurse's Notes [facility] Name: Ovidio Doty Jr Age: 78 yrs Sex: Male : 1945 Arrival Date: 09/20/2023 Time: 17:47 Bed 17 Private MD: Diagnosis: Essential (primary) hypertension Presentation: 09/19 18:02 Chief complaint: Patient states: "my blood pressure has been high today and now I am aa5 starting to get a headache". Coronavirus screen: At this time, the client does not indicate any symptoms associated with coronavirus-19. Ebola Screen: Patient denies travel to an Ebola-affected area in the 21 days before illness onset. Initial Sepsis Screen: Does the patient meet any 2 criteria? No. Patient's initial sepsis screen is negative. Does the patient have a suspected source of infection? No. Patient's initial sepsis screen is negative. Risk Assessment: Do you want to hurt yourself or someone else? Patient reports no desire to harm self or others. Onset of symptoms was September 20, 2023. 18:02 Method Of Arrival: Ambulatory aa5 18:02 Acuity: TIO 2 aa5 Historical: - Allergies: 18:03 No Known Allergies; aa5 - Home Meds: 18:04 losartan 50 mg oral tablet [Active]; Eliquis 5 mg oral tablet once [Active]; sotalol 80 aa5 mg Oral tab 1 tab 2 times per day [Active]; - PMHx: 18:03 Atrial fibrillation; High Cholesterol; Hyperlipidemia; Hypertension; Irregular heart aa5 rate; - PSHx: 18:03 Tonsillectomy; aa5 - Immunization history:: Adult Immunizations unknown. - Infectious Disease History:: Denies. - Social history:: Smoking status: Patient denies any tobacco usage or history of. - Family history:: not pertinent. Screenin:31 [facility] ED Fall Risk Assessment (Adult) History of falling in the last 3 months, nj1 including since admission No falls in past 3 months (0 pts) Confusion or Disorientation No (0 pts) Intoxicated or Sedated No (0 pts) Impaired Gait No (0 pts) Mobility Assist Device Used No (0 pt) Altered Elimination No (0 pt) Score/Fall Risk Level 0 - 2 = Low Risk Oriented to surroundings, Maintained a safe environment, Hourly rounding (assess needs \\T\\ fall precautionary measures) done. Abuse screen: Denies threats or abuse. Denies injuries from another. Nutritional screening: No deficits noted. Tuberculosis screening: No symptoms or risk factors identified. Assessment: 18:30 General: Appears in no apparent distress. comfortable, Behavior is calm, cooperative, nj1 appropriate for age. Pain: Denies pain. Neuro: Level of Consciousness is awake, alert, obeys commands, Oriented to person, place, time, situation. Cardiovascular: Patient's skin is warm and dry. Respiratory: Airway is patent Respiratory effort is even, unlabored. 19:27 Reassessment: Patient appears in no apparent distress at this time. No changes from [facility] previously documented assessment. Patient and/or family updated on plan of care and expected duration. Pain level reassessed. Patient is alert, oriented x 3, equal unlabored respirations, skin warm/dry/pink. 20:14 Reassessment: Patient appears in no apparent distress at this time. Patient is alert, nj1 oriented x 3, equal unlabored respirations, skin warm/dry/pink. Vital Signs: 18:02 BP 225 / 127; Pulse 60; Resp 20 S; Temp 97.9(TE); Pulse Ox 98% on R/A; Weight 109.77 kg aa5 (R); Height 6 ft. 3 in. (R); 18:40 BP 213 / 113; Pulse 58; Resp 18; Pulse Ox 96% ; nj1 19:20 BP 169 / 93; Pulse 59; Resp 15; Pulse Ox 98% on R/A; nj1 19:48 BP 159 / 92; Pulse 62; Resp 18; Pulse Ox 97% ; nj1 18:02 Body Mass Index 30.25 (109.77 kg, 190.5 cm) aa ED Course: 17:48 Patient arrived in ED. ts1 17:49 Eloy Talbot MD is Attending Physician. rt 18:02 Arm band placed on. aa5 18:05 Triage completed. aa5 18:13 Kelly Traore, DARRYL is Primary Nurse. nj1 18:32 Patient has correct armband on for positive identification. Bed in low position. Call [facility] light in reach. Provided Education on: call light, fall precautions. 18:58 Client placed on continuous cardiac and pulse oximetry monitoring. NIBP monitoring kj2 applied. teletypesetter monitor on. 18:58 Inserted saline lock: 20 gauge in left forearm, using aseptic technique. Blood kj2 collected. 19:08 CT Head Brain wo Cont In Process Unspecified. EDMS 19:26 XRAY Chest (1 view) In Process Unspecified. EDMS 20:14 No provider procedures requiring assistance completed. IV discontinued, intact, nj1 bleeding controlled, Pressure dressing applied. Administered Medications: 18:52 Drug: hydrALAZINE IVP 20 mg IVP once Route: IVP; Site: left forearm; kj2 19:22 Follow up: Response: No adverse reaction; Blood pressure is lowered nj1 Medication: 20:14 VIS not applicable for this client. nj1 Outcome: 19:47 Discharge ordered by MD. rt 20:14 Discharged to home ambulatory, nj1 20:14 Condition: stable 20:14 Discharge instructions given to patient, Instructed on discharge instructions, follow up and referral plans. medication usage, Demonstrated understanding of instructions, follow-up care, 20:15 Patient left the ED. nj1 Signatures: Dispatcher [employer] EDMO Veronica Rodriguez, RN RN aa5 Eloy Talbot MD MD rt Kelly Traore, DARRYL RN nj1 Leni Garcia PAS PAS ts1 Char Alfredo, RN RN kj2 Corrections: (The following items were deleted from the chart) 18:05 18:02 Pulse 60bpm; Resp 20bpm; Spontaneous; Pulse Ox 98% RA; Temp 97.9F Temporal; aa5 109.77 kg Reported; Height 6 ft. 3 in. Reported; BMI: 30.2; aa5
--- NOTE | 2023-09-20 19:47 | EDPHYS ---
Physician Documentation [facility] Name: Ovidio Doty Jr Age: 78 yrs Sex: Male : 1945 Arrival Date: 09/20/2023 Time: 17:47 Bed 17 Private MD: ED Physician Eloy Talbot HPI: 09/19 18:26 This 78 yrs old Male presents to ER via Ambulatory with complaints of Blood Pressure rt Problem. 18:26 Patient presents to the ED with reported hypertension at home, patient reports rt compliance with his losartan, sotalol, Eliquis. States that he developed a mild frontal headache at today. Denies chest pain, shortness of breath. Denies other acute complaints, symptoms are moderate in severity, no other aggravating or alleviating factors.. Historical: - Allergies: 18:03 No Known Allergies; aa5 - Home Meds: 18:04 losartan 50 mg oral tablet [Active]; Eliquis 5 mg oral tablet once [Active]; sotalol 80 aa5 mg Oral tab 1 tab 2 times per day [Active]; - PMHx: 18:03 Atrial fibrillation; High Cholesterol; Hyperlipidemia; Hypertension; Irregular heart aa5 rate; - PSHx: 18:03 Tonsillectomy; aa5 - Immunization history:: Adult Immunizations unknown. - Infectious Disease History:: Denies. - Social history:: Smoking status: Patient denies any tobacco usage or history of. - Family history:: not pertinent. ROS: 18:26 Constitutional: Negative for fever, chills, and weight loss, Cardiovascular: Negative rt for chest pain, palpitations, and edema, Respiratory: Negative for shortness of breath, cough, wheezing, and pleuritic chest pain, Abdomen/GI: Negative for abdominal pain, nausea, vomiting, diarrhea, and constipation, MS/Extremity: Negative for injury and deformity, Skin: Negative for injury, rash, and discoloration, 18:26 Neuro: Positive for headache, Negative for altered mental status, Exam: 18:26 Constitutional: This is a well developed, well nourished patient who is awake, alert, rt and in no acute distress. Head/Face: Normocephalic, atraumatic. Chest/axilla: Normal chest wall appearance and motion. Nontender with no deformity. No lesions are appreciated. Cardiovascular: Regular rate and rhythm with a normal S1 and S2. No gallops, murmurs, or rubs. Normal PMI, no JVD. No pulse deficits. Respiratory: Lungs have equal breath sounds bilaterally, clear to auscultation and percussion. No rales, rhonchi or wheezes noted. No increased work of breathing, no retractions or nasal flaring. Abdomen/GI: Soft, non-tender, with normal bowel sounds. No distension or tympany. No guarding or rebound. No evidence of tenderness throughout. Skin: Warm, dry with normal turgor. Normal color with no rashes, no lesions, and no evidence of cellulitis. MS/ Extremity: Pulses equal, no cyanosis. Neurovascular intact. Full, normal range of motion. Neuro: Awake and alert, GCS 15, oriented to person, place, time, and situation. Cranial nerves II-XII grossly intact. Motor strength 5/5 in all extremities. Sensory grossly intact. Cerebellar exam normal. Normal gait. 18:26 ECG was reviewed by the Attending Physician. Vital Signs: 18:02 BP 225 / 127; Pulse 60; Resp 20 S; Temp 97.9(TE); Pulse Ox 98% on R/A; Weight 109.77 kg aa5 (R); Height 6 ft. 3 in. (R); 18:40 BP 213 / 113; Pulse 58; Resp 18; Pulse Ox 96% ; nj1 19:20 BP 169 / 93; Pulse 59; Resp 15; Pulse Ox 98% on R/A; nj1 19:48 BP 159 / 92; Pulse 62; Resp 18; Pulse Ox 97% ; nj1 18:02 Body Mass Index 30.25 (109.77 kg, 190.5 cm) aa5 MDM: 18:14 Patient medically screened. rt 09/19 18:22 Order name: Basic Metabolic Panel; Complete Time: 19:21 rt 09/19 18:22 Order name: CBC with Diff; Complete Time: 19:21 rt 09/19 18:22 Order name: LFT's; Complete Time: 19:21 rt 09/19 18:22 Order name: Magnesium; Complete Time: 19:21 rt 09/19 18:22 Order name: NT PRO-BNP; Complete Time: 19:21 rt 09/19 18:22 Order name: Troponin HS; Complete Time: 19:21 rt 09/19 18:22 Order name: XRAY Chest (1 view); Complete Time: 19:42 rt 09/19 18:22 Order name: CT Head Brain wo Cont; Complete Time: 19:28 rt 09/19 18:22 Order name: EKG; Complete Time: 18:22 rt 09/19 18:22 Order name: Cardiac monitoring; Complete Time: 18:57 rt 09/19 18:22 Order name: EKG - Nurse/Tech; Complete Time: 18:27 rt 09/19 18:22 Order name: IV Saline Lock; Complete Time: 18:57 rt 09/19 18:22 Order name: Labs collected and sent; Complete Time: 18:57 rt 09/19 18:22 Order name: O2 Per Protocol; Complete Time: 18: rt 09/19 18:22 Order name: O2 Sat Monitoring; Complete Time: 18: rt EC: Rate is 58 beats/min. Rhythm is regular, Normal Sinus Rhythm with No ectopy. QRS [place] rt is Normal. NH interval is normal. QRS interval is normal. QT interval is normal. No Q waves. T waves are Normal. No ST changes noted. Interpreted by me. Administered Medications: 18:52 Drug: hydrALAZINE IVP 20 mg IVP once Route: IVP; Site: left forearm; kj2 19:22 Follow up: Response: No adverse reaction; Blood pressure is lowered nj1 Disposition Summary: 09/20/23 19:47 Discharge Ordered Notes: Location: Home rt Problem: new rt Symptoms: have improved rt Condition: Stable rt Diagnosis - Essential (primary) hypertension rt Followup: rt - With: Private Physician - When: 2 - 3 days - Reason: Discharge Instructions: - Discharge Summary Sheet rt - Hypertension, Adult rt Forms: - Medication Reconciliation Form rt - Antibiotic Education rt - Prescription Opioid Use rt - Patient Portal Instructions rt - Leadership Thank You Letter rt Signatures: Dispatcher [employer] Veronica Arambula, RN RN aa5 Eloy Talbot MD MD rt Char Alfredo RN RN kj2 Kelly Traore RN nj1
[2023-09-20 20:52] VITALS: BP 159/92; TEMP 97.9; O2SAT 97
--- NOTE | 2023-09-23 14:22 | EKG ---
Test Date: 2023-09-20 Test Time: 18:25:57 Manager Supplier: [employer] MEASUREMENT RESULTS: Intervals: Rate: 58 MD: 150 QRSD: 80 QT: 416 QTc: 408 [place]: P: -5 MD: 150 QRS: 25 T: 12 INTERPRETIVE STATEMENTS: Sinus bradycardia Otherwise normal ECG Compared to ECG 07/11/2023 07:39:51 Atrial premature complex(es) no longer present Aberrant conduction of supraventricular beat(s) no longer present Electronically Signed On 09-23-23 14:16:16 CDT by Rick Pollard
== END 2023-09-20 20:15 | disposition home or self-care (01) ==
LOC: ER 17:47
DX: I10 Essential (primary) hypertension (principal); I48.91 Unspecified atrial fibrillation; Z79.01 Long term (current) use of anticoagulants
CPT/HCPCS: 85025; 80048; 36415; 83735; 80076; 84484; 83880; 70450; 71045; 96374; 99285; J0360; 93005